=== PATIENT | female | born 1960 | race Caucasian/White ===

== ENCOUNTER 2021-01-12 15:15 | Emergency (ER) | payer MEDICARE ==
[~2021-01-12] VITALS: Ht 165.1 cm; Wt 95.5 kg
[2021-01-12] MEDS ORDERED: LORazepam 2 MG/ML VIAL IM ONE (15:45)
[2021-01-12 15:53] LABS: HEMATOCRIT 41.4 % (36.0-47.0); HEMOGLOBIN 13.7 g/dl (12.0-15.5); MEAN CORPUSCULAR HEMOGLOBIN 30.4 pg (27.0-33.0); MEAN CORPUSCULAR HGB CONC 33.1 g/dl (32.0-36.5); MEAN CORPUSCULAR VOLUME 91.8 fl (80.0-96.0); PLATELET COUNT, AUTOMATED 299 10^3/uL (150-450); RED BLOOD COUNT 4.51 10^6/uL (4.00-5.40); WHITE BLOOD COUNT 9.4 10^3/uL (4.0-10.0)
[2021-01-12 16:31] LABS: ACETAMINOPHEN LEVEL < 2.0 UG/ML (10.0-30.0); ALBUMIN 3.4 GM/DL (3.2-5.2); ALT/SGPT 12 U/L (12-78); BILIRUBIN,DIRECT 0.1 MG/DL (0.0-0.2); BILIRUBIN,TOTAL 0.4 MG/DL (0.2-1.0); BLOOD UREA NITROGEN 14 MG/DL (7-18); CALCIUM LEVEL 9.5 MG/DL (8.8-10.2); CARBON DIOXIDE LEVEL 23 MEQ/L (21-32); CHLORIDE LEVEL 109 MEQ/L (98-107); CREATININE FOR GFR 0.66 MG/DL (0.55-1.30); ETHYL ALCOHOL (ETHANOL) < 0.003 % (0.000-0.010); GLOMERULAR FILTRATION RATE > 60.0 (>45); GLUCOSE, FASTING 142 MG/DL (70-100); POTASSIUM SERUM 3.9 MEQ/L (3.5-5.1); SALICYLATE LEVEL 2.5 MG/DL (5.0-30.0); SODIUM LEVEL 140 MEQ/L (136-145)
[2021-01-13] MEDS ORDERED: UNRESOLVED CLARIFICATION ENTRY XX SCH (00:01)
[2021-01-13 01:01] LABS: AMPHETAMINES LEVEL URINE NEGATIVE (NEGATIVE); BARBITURATES URINE NEGATIVE (NEGATIVE); BENZODIAZEPINES URINE NEGATIVE (NEGATIVE); CANNABINOIDS URINE NEGATIVE (NEGATIVE); COCAINE METABOLITE URINE NEGATIVE (NEGATIVE); METHADONE URINE NEGATIVE (NEGATIVE); OPIATES URINE NEGATIVE (NEGATIVE); PHENCYCLIDINE URINE NEGATIVE (NEGATIVE)
[2021-01-13] MEDS ORDERED: NOXI1TAB PO (01:26)
[2021-01-13] MEDS ORDERED: MM S100C PO (01:26)
[2021-01-13] MEDS ORDERED: DEPA1TAB3 PO (01:26)
[2021-01-13] MEDS ORDERED: OLANZapine ORAL DISINTEGRATING TAB 5MG PO ONE ×2 (02:45→11:35)
[2021-01-13] MEDS ORDERED: LORazepam 1 MG TAB PO ONE (08:45)
[2021-01-13] MEDS: DIVALPROEX 500 MG TAB PO SCH (09:13)
[2021-01-13] MEDS ORDERED: LORazepam 2 MG/ML VIAL IM ONE ×2 (12:20→13:40)
[2021-01-13] MEDS ORDERED: OLANZapine INTRAMUSCULAR 10MG VIAL IM ONE (13:40)
[2021-01-13] MEDS ORDERED: LORazepam 2 MG/ML VIAL IM STA (14:31)
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
[2021-01-14] MEDS ORDERED: OLANZapine INTRAMUSCULAR 10MG VIAL IM ONE (00:50)
[2021-01-14] MEDS: DIVALPROEX 500 MG TAB PO SCH (08:43)
[2021-01-14] MEDS ORDERED: ARIPiprazole MONOHYDRATE 400 MG INJ (ABILIFY) IM ONE (09:25)
[2021-01-14] MEDS ORDERED: COGE1INJ IM (13:29)
[2021-01-14] MEDS ORDERED: ERGO500029 PO (13:29)
[2021-01-14] MEDS ORDERED: ABIL1INJ2 IM (13:29)
[2021-01-14] MEDS ORDERED: INVE234I IM (13:30)
[2021-01-14] MEDS ORDERED: HOME MED LIST COMPLETE! XX SCH (13:45)
[2021-01-14] MEDS ORDERED: PALIPERIDONE PALMITATE 234MG/1.5ML INJ (INVEGA)(FREE PSY INPT ONLY) IM ONE (15:00)
[2021-01-14] MEDS ORDERED: haloperidoL 5 MG TAB PO ONE (16:25)
[2021-01-14] MEDS ORDERED: LORazepam 2 MG TAB PO ONE (16:25)
[2021-01-14] MEDS ORDERED: diphenhydrAMINE 50MG/ML VIAL (J1200) IM ONE (17:00)
[2021-01-14] MEDS ORDERED: LORazepam 2 MG/ML VIAL IM ONE (17:00)
[2021-01-14] MEDS ORDERED: HALOPERIDOL 5MG/ML VIAL (J1630 PER 1) IM ONE (17:00)
[2021-01-14 22:08] LABS: RSV AMPLIFICATION NEGATIVE (NEGATIVE)
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
[2021-01-15] MEDS ORDERED: LORazepam 2 MG TAB PO ONE ×2 (08:40→15:10)
[2021-01-15] MEDS ORDERED: DIVALPROEX 500 MG TAB PO SCH (09:00)
[2021-01-15] MEDS ORDERED: LORazepam 2 MG/ML VIAL IM ONE (09:40)
[2021-01-15] MEDS ORDERED: HALOPERIDOL 5MG/ML VIAL (J1630 PER 1) IM ONE (09:40)
[2021-01-15] MEDS ORDERED: HALOPERIDOL 5MG/ML VIAL (J1630 PER 1) As Ordered ONE (09:43)
[2021-01-15 16:36] VITALS: BP 147/65
--- NOTE | 2021-01-16 00:06 | ECGEPIP ---
[facility] - ED Test Date: 2021-01-14 Pat Name: LISETTE REYNOLDS Department: Room: - Gender: Female Employment Counselor: jose : 1960 Requested By: LG Arriaga Order Number: [id number] Reading MD: Balta Seaman Measurements Intervals [place] Rate: 78 P: 37 KS: 144 QRS: -7 QRSD: 132 T: 34 QT: 406 QTc: 462 Interpretive Statements Normal sinus rhythm Right bundle branch block NO PRIORS FOR COMPARISON Electronically Signed on 01-16-2021 0:06:25 EDT by Balta Seaman
== END 2021-01-15 16:38 ==
LOC: M ED 15:15
DX: F31.9 Bipolar disorder, unspecified (principal); F25.9 Schizoaffective disorder, unspecified; Z79.899 Other long term (current) drug therapy
CPT/HCPCS: 80048; 80076; 80143; 80164; 80307; 82077; 84443; 85027; 87631; 93005; 96372; 99222; 99285; J1200; J1630; J2060

== ENCOUNTER 2021-01-28 11:06 | Emergency (ER) | payer MEDICARE ==
[~2021-01-28 11:06] MED LIST: ABIL1INJ2 IM; COGE1INJ IM; DEPA1TAB3 PO; ERGO500029 PO; INVE234I IM; MM S100C PO; NOXI1TAB PO
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
[2021-01-28 14:57] LABS: HEMATOCRIT 35.5 % (36.0-47.0); HEMOGLOBIN 11.7 g/dl (12.0-15.5); MEAN CORPUSCULAR HEMOGLOBIN 30.9 pg (27.0-33.0); MEAN CORPUSCULAR VOLUME 93.7 fl (80.0-96.0); PLATELET COUNT, AUTOMATED 220 10^3/uL (150-450); RED BLOOD COUNT 3.79 10^6/uL (4.00-5.40); WHITE BLOOD COUNT 8.7 10^3/uL (4.0-10.0)
[2021-01-28 15:57] LABS: RSV AMPLIFICATION NEGATIVE (NEGATIVE)
--- NOTE | 2021-01-28 17:51 | ECGEPIP ---
[facility] - ED Test Date: 2021-01-28 Pat Name: LISETTE REYNOLDS Department: Room: - Gender: Female Account Developer: ED : 1960 Requested By: YULI Dutta Order Number: [id number] Reading MD: Susie Zamora Measurements Intervals [place] Rate: 87 P: 68 FL: 150 QRS: -11 QRSD: 140 T: 52 QT: 398 QTc: 478 Interpretive Statements Normal sinus rhythm Right bundle branch block prolonged qtc increased rate 01/14/21 Electronically Signed on 01-28-2021 17:51:09 EDT by Susie Zamora
[2021-01-28 19:04] LABS: AMPHETAMINES LEVEL URINE NEGATIVE (NEGATIVE); BARBITURATES URINE NEGATIVE (NEGATIVE); BENZODIAZEPINES URINE NEGATIVE (NEGATIVE); CANNABINOIDS URINE NEGATIVE (NEGATIVE); COCAINE METABOLITE URINE NEGATIVE (NEGATIVE); METHADONE URINE NEGATIVE (NEGATIVE); OPIATES URINE NEGATIVE (NEGATIVE); PHENCYCLIDINE URINE NEGATIVE (NEGATIVE)
[2021-01-28] MEDS ORDERED: LORazepam 2 MG/ML VIAL IM ONE (21:55)
[2021-01-28] MEDS ORDERED: HALOPERIDOL 5MG/ML VIAL (J1630 PER 1) IM ONE (21:55)
[2021-01-28 23:06] LABS: ACETAMINOPHEN LEVEL < 2.0 UG/ML (10.0-30.0); ALBUMIN 2.7 GM/DL (3.2-5.2); ALT/SGPT 13 U/L (12-78); BILIRUBIN,DIRECT < 0.1 MG/DL (0.0-0.2); BILIRUBIN,TOTAL 0.2 MG/DL (0.2-1.0); BLOOD UREA NITROGEN 9 MG/DL (7-18); CALCIUM LEVEL 9.3 MG/DL (8.8-10.2); CARBON DIOXIDE LEVEL 29 MEQ/L (21-32); CHLORIDE LEVEL 111 MEQ/L (98-107); CREATININE FOR GFR 0.58 MG/DL (0.55-1.30); ETHYL ALCOHOL (ETHANOL) < 0.003 % (0.000-0.010); GLOMERULAR FILTRATION RATE > 60.0 (>45); GLUCOSE, FASTING 103 MG/DL (70-100); POTASSIUM SERUM 3.3 MEQ/L (3.5-5.1); SALICYLATE LEVEL 2.3 MG/DL (5.0-30.0); SODIUM LEVEL 144 MEQ/L (136-145); VALPROIC ACID (DEPAKOTE) 57.1 UG/ML (50.0-100.0)
[2021-01-28] MEDS ORDERED: POTASSIUM CHLORIDE 10MEQ SR TABLET PO ONE (23:25)
[2021-01-28] MEDS ORDERED: DIVALPROEX 500 MG TAB PO ONE (23:30)
[2021-01-29] MEDS ORDERED: DIVALPROEX 500 MG TAB PO SCH (09:00)
[2021-01-29] MEDS ORDERED: PROAAER10 INH (09:27)
[2021-01-29] MEDS ORDERED: NYST10CR TOP (09:27)
[2021-01-29] MEDS ORDERED: MIRA3350 PO (09:27)
[2021-01-29] MEDS ORDERED: HOME MED LIST COMPLETE! XX SCH (09:30)
[2021-01-29] MEDS ORDERED: POTASSIUM CHLORIDE 10MEQ SR TABLET PO ONE (14:00)
[2021-01-29] MEDS ORDERED: HALOPERIDOL 5MG/ML VIAL (J1630 PER 1) IM ONE (17:25)
[2021-01-29] MEDS ORDERED: LORazepam 2 MG/ML VIAL IM ONE (17:25)
[2021-01-29] MEDS ORDERED: HALOPERIDOL 5MG/ML VIAL (J1630 PER 1) As Ordered ONE (17:27)
[2021-01-29] MEDS ORDERED: LORazepam 2 MG/ML VIAL As Ordered ONE (17:28)
[2021-01-29 18:00] VITALS: BP 142/72
== END 2021-01-29 18:02 ==
LOC: M ED 11:06
DX: F25.9 Schizoaffective disorder, unspecified (principal); J45.909 Unspecified asthma, uncomplicated; I45.10 Unspecified right bundle-branch block; Z79.899 Other long term (current) drug therapy
CPT/HCPCS: 36415; 80048; 80076; 80143; 80164; 80307; 82077; 85027; 87631; 93005; 96372; 99285; J1630; J2060

== ENCOUNTER 2021-03-24 11:47 | Inpatient (IN) | payer MEDICARE, MEDICAID ==
[~2021-03-24] VITALS: Ht 166.4 cm; Wt 116.5 kg
[~2021-03-24 11:47] MED LIST changes: +MIRA3350 PO; +NYST10CR TOP; +PROAAER10 INH
[2021-03-24 18:10] LABS: HEMATOCRIT 39.7 % (36.0-47.0); HEMOGLOBIN 12.8 g/dl (12.0-15.5); MEAN CORPUSCULAR HEMOGLOBIN 29.7 pg (27.0-33.0); MEAN CORPUSCULAR HGB CONC 32.2 g/dl (32.0-36.5); MEAN CORPUSCULAR VOLUME 92.1 fl (80.0-96.0); PLATELET COUNT, AUTOMATED 281 10^3/uL (150-450); RED BLOOD COUNT 4.31 10^6/uL (4.00-5.40); WHITE BLOOD COUNT 8.6 10^3/uL (4.0-10.0)
[2021-03-24 18:46] LABS: ACETAMINOPHEN LEVEL < 2.0 UG/ML (10.0-30.0); ALBUMIN 3.3 GM/DL (3.2-5.2); ALT/SGPT 11 U/L (12-78); BILIRUBIN,DIRECT 0.1 MG/DL (0.0-0.2); BILIRUBIN,TOTAL 0.4 MG/DL (0.2-1.0); BLOOD UREA NITROGEN 16 MG/DL (7-18); CALCIUM LEVEL 9.6 MG/DL (8.8-10.2); CARBON DIOXIDE LEVEL 28 MEQ/L (21-32); CHLORIDE LEVEL 108 MEQ/L (98-107); CREATININE FOR GFR 0.69 MG/DL (0.55-1.30); ETHYL ALCOHOL (ETHANOL) < 0.003 % (0.000-0.010); GLOMERULAR FILTRATION RATE > 60.0 (>45); GLUCOSE, FASTING 87 MG/DL (70-100); POTASSIUM SERUM 4.2 MEQ/L (3.5-5.1); SODIUM LEVEL 142 MEQ/L (136-145)
[2021-03-25 07:12] LABS: AMPHETAMINES LEVEL URINE NEGATIVE (NEGATIVE); BARBITURATES URINE NEGATIVE (NEGATIVE); BENZODIAZEPINES URINE NEGATIVE (NEGATIVE); CANNABINOIDS URINE NEGATIVE (NEGATIVE); COCAINE METABOLITE URINE NEGATIVE (NEGATIVE); METHADONE URINE NEGATIVE (NEGATIVE); OPIATES URINE NEGATIVE (NEGATIVE); PHENCYCLIDINE URINE NEGATIVE (NEGATIVE)
[2021-03-25] MEDS: OLANZapine ORAL DISINTEGRATING TAB 5MG PO ONE ×2 (19:18→20:00)
[2021-03-26 16:10] LABS: RSV AMPLIFICATION NEGATIVE (NEGATIVE)
[2021-03-26] MEDS ORDERED: LORazepam 2 MG/ML VIAL IM STA (16:23)
[2021-03-26] MEDS ORDERED: OLANZapine INTRAMUSCULAR 10MG VIAL IM ONE (16:25)
[2021-03-28] MEDS ORDERED: HALOPERIDOL 5MG/ML VIAL (J1630 PER 1) IM ONE (09:20)
[2021-03-28] MEDS ORDERED: LORazepam 2 MG/ML VIAL IM ONE (09:20)
[2021-03-28] MEDS ORDERED: diphenhydrAMINE 50MG/ML VIAL (J1200) IM ONE (09:20)
[2021-03-29] MEDS: DIVALPROEX 500 MG TAB PO SCH ×2 (09:00→20:27)
[2021-03-29] MEDS ORDERED: HOME MED LIST COMPLETE! XX SCH (09:05)
[2021-03-29] MEDS ORDERED: OLANZapine ORAL DISINTEGRATING TAB 5MG PO ONE (09:30)
[2021-03-29] MEDS ORDERED: LORazepam 2 MG/ML VIAL IM ONE (10:20)
[2021-03-29] MEDS ORDERED: HALOPERIDOL 5MG/ML VIAL (J1630 PER 1) IM ONE (10:20)
[2021-03-29] MEDS ORDERED: diphenhydrAMINE 50MG/ML VIAL (J1200) IM ONE (10:20)
[2021-03-30 13:59] LABS: RSV AMPLIFICATION NEGATIVE (NEGATIVE)
[2021-03-30] MEDS ORDERED: MOM 30ML SUSPENSION UDC PO PRN (14:20)
[2021-03-30] MEDS ORDERED: MAALOX 30 ML SUSP *UDC PO PRN (14:20)
[2021-03-31] MEDS: DIVALPROEX 250MG *ER* TAB PO SCH ×3 (09:00→20:54)
[2021-03-31] MEDS ORDERED: BENZTROPINE 0.5 MG TAB PO PRN (14:05)
[2021-04-01] MEDS: DIVALPROEX 250MG *ER* TAB PO SCH ×2 (09:00→20:36)
[2021-04-02] MEDS: traZODone 50 MG TAB PO PRN (00:42)
[2021-04-02] MEDS: DIVALPROEX 250MG *ER* TAB PO SCH ×2 (09:00→21:00)
[2021-04-03] MEDS: DIVALPROEX 250MG *ER* TAB PO SCH ×2 (09:00→20:38)
[2021-04-03] MEDS ORDERED: LORazepam 2 MG/ML VIAL IM STA (09:15)
[2021-04-03] MEDS ORDERED: HALOPERIDOL 5MG/ML VIAL (J1630 PER 1) IM STA (09:15)
[2021-04-03] MEDS ORDERED: diphenhydrAMINE 50MG/ML VIAL (J1200) IM STA (09:15)
[2021-04-04] MEDS: DIVALPROEX 250MG *ER* TAB PO SCH (09:00)
[2021-04-05] MEDS: DIVALPROEX 250MG *ER* TAB PO SCH ×3 (04:32→21:00)
[2021-04-06] MEDS: DIVALPROEX 250MG *ER* TAB PO SCH ×2 (09:00→20:23)
[2021-04-06] MEDS: ACETAMINOPHEN TAB 650MG DOSE (2X325MG) PO PRN (16:23)
[2021-04-07] MEDS: DIVALPROEX 250MG *ER* TAB PO SCH ×2 (08:52→20:28)
[2021-04-07] MEDS: ACETAMINOPHEN TAB 650MG DOSE (2X325MG) PO PRN ×2 (08:52→14:56)
[2021-04-08] MEDS: ACETAMINOPHEN TAB 650MG DOSE (2X325MG) PO PRN ×2 (07:36→21:38)
[2021-04-08] MEDS: DIVALPROEX 250MG *ER* TAB PO SCH ×3 (09:00→20:06)
[2021-04-09] MEDS: DIVALPROEX 250MG *ER* TAB PO SCH ×2 (09:00→20:00)
[2021-04-09] MEDS: ACETAMINOPHEN TAB 650MG DOSE (2X325MG) PO PRN (15:10)
[2021-04-10] MEDS: DIVALPROEX 250MG *ER* TAB PO SCH ×2 (08:29→21:00)
[2021-04-10] MEDS: ACETAMINOPHEN TAB 650MG DOSE (2X325MG) PO PRN (16:54)
[2021-04-11] MEDS: DIVALPROEX 250MG *ER* TAB PO SCH ×2 (09:00→20:42)
[2021-04-11] MEDS: ACETAMINOPHEN TAB 650MG DOSE (2X325MG) PO PRN (16:23)
[2021-04-12] MEDS: DIVALPROEX 250MG *ER* TAB PO SCH ×2 (08:19→21:00)
[2021-04-12] MEDS: NYSTATIN 100,000 UNITS/GM TOPICAL PWD 15 GM TOP SCH ×2 (11:26→21:00)
[2021-04-13] MEDS: DIVALPROEX 250MG *ER* TAB PO SCH ×2 (09:00→21:00)
[2021-04-13] MEDS: NYSTATIN 100,000 UNITS/GM TOPICAL PWD 15 GM TOP SCH ×2 (09:52→21:00)
[2021-04-13] MEDS: ACETAMINOPHEN TAB 650MG DOSE (2X325MG) PO PRN (18:51)
[2021-04-14] MEDS: DIVALPROEX 250MG *ER* TAB PO SCH ×2 (09:00→20:19)
[2021-04-14] MEDS: NYSTATIN 100,000 UNITS/GM TOPICAL PWD 15 GM TOP SCH ×2 (09:52→21:00)
[2021-04-15] MEDS: DIVALPROEX 250MG *ER* TAB PO SCH ×2 (09:00→21:00)
[2021-04-15] MEDS: NYSTATIN 100,000 UNITS/GM TOPICAL PWD 15 GM TOP SCH ×2 (09:49→21:00)
[2021-04-15] MEDS: QUEtiapine FUMARATE 50MG TAB PO SCH (12:25)
[2021-04-15] MEDS: QUEtiapine FUMARATE 100 MG TAB PO SCH (21:00)
[2021-04-16] MEDS: DIVALPROEX 250MG *ER* TAB PO SCH ×2 (08:19→20:32)
[2021-04-16] MEDS: QUEtiapine FUMARATE 50MG TAB PO SCH (08:19)
[2021-04-16] MEDS: NYSTATIN 100,000 UNITS/GM TOPICAL PWD 15 GM TOP SCH ×2 (08:20→21:00)
[2021-04-16] MEDS ORDERED: diphenhydrAMINE 50MG/ML VIAL (J1200) IM STA (11:08)
[2021-04-16] MEDS ORDERED: LORazepam 2 MG/ML VIAL IM STA (11:08)
[2021-04-16] MEDS ORDERED: HALOPERIDOL 5MG/ML VIAL (J1630 PER 1) IM STA (11:08)
[2021-04-16] MEDS ORDERED: HALOPERIDOL 5MG/ML VIAL (J1630 PER 1) As Ordered ONE (11:17)
[2021-04-16] MEDS ORDERED: LORazepam 2 MG/ML VIAL As Ordered ONE (11:25)
[2021-04-16] MEDS: QUEtiapine FUMARATE 100 MG TAB PO SCH (20:33)
[2021-04-17] MEDS: DIVALPROEX 250MG *ER* TAB PO SCH ×2 (08:01→21:00)
[2021-04-17] MEDS: QUEtiapine FUMARATE 100 MG TAB PO SCH (08:01)
[2021-04-17] MEDS: NYSTATIN 100,000 UNITS/GM TOPICAL PWD 15 GM TOP SCH ×2 (08:02→21:00)
[2021-04-17] MEDS: diphenhydrAMINE 25MG CAP PO PRN (08:47)
[2021-04-17] MEDS: QUEtiapine FUMARATE 50MG TAB PO SCH (21:00)
[2021-04-18] MEDS: DIVALPROEX 500MG *ER* TAB PO SCH (09:00)
[2021-04-18] MEDS: NYSTATIN 100,000 UNITS/GM TOPICAL PWD 15 GM TOP SCH ×2 (09:00→20:23)
[2021-04-18] MEDS: ACETAMINOPHEN TAB 650MG DOSE (2X325MG) PO PRN (09:10)
[2021-04-18] MEDS: diphenhydrAMINE 25MG CAP PO PRN ×2 (09:10→20:38)
[2021-04-18] MEDS: QUEtiapine FUMARATE 100 MG TAB PO SCH (09:11)
[2021-04-18] MEDS: LIDOCAINE 5% (LIDODERM) PATCH TD SCH (14:50)
[2021-04-18] MEDS: DIVALPROEX 250MG *ER* TAB PO SCH (20:23)
[2021-04-18] MEDS: **NOTE PATIENT COMMENT** MISC XX SCH (20:23)
[2021-04-18] MEDS: QUEtiapine FUMARATE 50MG TAB PO SCH ×2 (20:23→20:38)
[2021-04-19] MEDS: DIVALPROEX 500MG *ER* TAB PO SCH (09:00)
[2021-04-19] MEDS: NYSTATIN 100,000 UNITS/GM TOPICAL PWD 15 GM TOP SCH ×2 (09:00→22:44)
[2021-04-19] MEDS: LIDOCAINE 5% (LIDODERM) PATCH TD SCH ×2 (09:00→22:45)
[2021-04-19] MEDS: diphenhydrAMINE 25MG CAP PO PRN (09:57)
[2021-04-19] MEDS: QUEtiapine FUMARATE 100 MG TAB PO SCH (09:57)
[2021-04-19] MEDS: DIVALPROEX 250MG *ER* TAB PO SCH (22:44)
[2021-04-19] MEDS: QUEtiapine FUMARATE 50MG TAB PO SCH (22:44)
[2021-04-19] MEDS: **NOTE PATIENT COMMENT** MISC XX SCH (22:46)
[2021-04-20] MEDS: NYSTATIN 100,000 UNITS/GM TOPICAL PWD 15 GM TOP SCH ×2 (09:00→21:00)
[2021-04-20] MEDS: LIDOCAINE 5% (LIDODERM) PATCH TD SCH (09:00)
[2021-04-20] MEDS: DIVALPROEX 500MG *ER* TAB PO SCH (09:00)
[2021-04-20] MEDS: QUEtiapine FUMARATE 100 MG TAB PO SCH (09:48)
[2021-04-20] MEDS: diphenhydrAMINE 25MG CAP PO PRN (09:48)
[2021-04-20] MEDS: **NOTE PATIENT COMMENT** MISC XX SCH (21:00)
[2021-04-20] MEDS: DIVALPROEX 250MG *ER* TAB PO SCH (21:00)
[2021-04-21 06:45] VITALS: BP 180/83
[2021-04-21] MEDS: diphenhydrAMINE 25MG CAP PO PRN ×2 (08:22→21:32)
[2021-04-21] MEDS: LIDOCAINE 5% (LIDODERM) PATCH TD SCH (08:25)
[2021-04-21] MEDS: DIVALPROEX 500MG *ER* TAB PO SCH (08:25)
[2021-04-21] MEDS: NYSTATIN 100,000 UNITS/GM TOPICAL PWD 15 GM TOP SCH ×2 (08:25→21:00)
[2021-04-21] MEDS: DIVALPROEX 250MG *ER* TAB PO SCH (21:00)
[2021-04-21] MEDS: **NOTE PATIENT COMMENT** MISC XX SCH (21:00)
[2021-04-21] MEDS: traZODone 50 MG TAB PO PRN (21:32)
[2021-04-22] MEDS: diphenhydrAMINE 25MG CAP PO PRN ×2 (08:09→19:27)
[2021-04-22] MEDS: NYSTATIN 100,000 UNITS/GM TOPICAL PWD 15 GM TOP SCH ×2 (09:00→19:28)
[2021-04-22] MEDS: LIDOCAINE 5% (LIDODERM) PATCH TD SCH (09:00)
[2021-04-22] MEDS: DIVALPROEX 500MG *ER* TAB PO SCH (09:00)
[2021-04-22] MEDS: traZODone 50 MG TAB PO PRN (19:27)
[2021-04-22] MEDS: DIVALPROEX 250MG *ER* TAB PO SCH (19:28)
[2021-04-22] MEDS: **NOTE PATIENT COMMENT** MISC XX SCH (19:28)
[2021-04-23] MEDS: DIVALPROEX 500MG *ER* TAB PO SCH (08:17)
[2021-04-23] MEDS: NYSTATIN 100,000 UNITS/GM TOPICAL PWD 15 GM TOP SCH ×2 (08:17→20:43)
[2021-04-23] MEDS: LIDOCAINE 5% (LIDODERM) PATCH TD SCH ×2 (08:17→10:57)
[2021-04-23] MEDS: OLANZapine 5 MG TAB PO PRN (13:49)
[2021-04-23] MEDS: ACETAMINOPHEN TAB 650MG DOSE (2X325MG) PO PRN (16:30)
[2021-04-23] MEDS: diphenhydrAMINE 25MG CAP PO PRN (20:42)
[2021-04-23] MEDS: DIVALPROEX 250MG *ER* TAB PO SCH (20:42)
[2021-04-23] MEDS: traZODone 50 MG TAB PO PRN (20:42)
[2021-04-23] MEDS: **NOTE PATIENT COMMENT** MISC XX SCH (20:49)
[2021-04-24] MEDS: OLANZapine 5 MG TAB PO PRN ×2 (06:14→13:14)
[2021-04-24] MEDS: DIVALPROEX 500MG *ER* TAB PO SCH (08:15)
[2021-04-24] MEDS: LIDOCAINE 5% (LIDODERM) PATCH TD SCH (08:15)
[2021-04-24] MEDS: NYSTATIN 100,000 UNITS/GM TOPICAL PWD 15 GM TOP SCH ×2 (08:15→20:58)
[2021-04-24] MEDS: diphenhydrAMINE 25MG CAP PO PRN (08:31)
[2021-04-24] MEDS: DIVALPROEX 250MG *ER* TAB PO SCH (20:58)
[2021-04-24] MEDS: **NOTE PATIENT COMMENT** MISC XX SCH (20:58)
[2021-04-25] MEDS: diphenhydrAMINE 25MG CAP PO PRN (08:10)
[2021-04-25] MEDS: LIDOCAINE 5% (LIDODERM) PATCH TD SCH (08:11)
[2021-04-25] MEDS: DIVALPROEX 500MG *ER* TAB PO SCH (08:11)
[2021-04-25] MEDS: NYSTATIN 100,000 UNITS/GM TOPICAL PWD 15 GM TOP SCH ×2 (08:11→20:57)
[2021-04-25] MEDS: OLANZapine 5 MG TAB PO PRN (09:20)
[2021-04-25] MEDS: **NOTE PATIENT COMMENT** MISC XX SCH (20:57)
[2021-04-25] MEDS: DIVALPROEX 250MG *ER* TAB PO SCH (20:57)
[2021-04-26] MEDS: diphenhydrAMINE 25MG CAP PO PRN ×2 (08:22→20:37)
[2021-04-26] MEDS: DIVALPROEX 500MG *ER* TAB PO SCH (09:00)
[2021-04-26] MEDS: LIDOCAINE 5% (LIDODERM) PATCH TD SCH (09:00)
[2021-04-26] MEDS: NYSTATIN 100,000 UNITS/GM TOPICAL PWD 15 GM TOP SCH ×2 (09:00→20:34)
[2021-04-26] MEDS: OLANZapine 5 MG TAB PO PRN (10:58)
[2021-04-26] MEDS ORDERED: OLANZapine 10 MG TAB PO ONE (13:30)
[2021-04-26] MEDS ORDERED: diphenhydrAMINE 50MG CAP PO ONE (13:30)
[2021-04-26] MEDS: **NOTE PATIENT COMMENT** MISC XX SCH (20:34)
[2021-04-26] MEDS: DIVALPROEX 250MG *ER* TAB PO SCH (20:34)
[2021-04-26] MEDS: traZODone 50 MG TAB PO PRN (20:37)
[2021-04-27] MEDS: OLANZapine 5 MG TAB PO PRN ×2 (04:49→23:24)
[2021-04-27] MEDS: DIVALPROEX 500MG *ER* TAB PO SCH (08:27)
[2021-04-27] MEDS: LIDOCAINE 5% (LIDODERM) PATCH TD SCH (08:31)
[2021-04-27] MEDS: NYSTATIN 100,000 UNITS/GM TOPICAL PWD 15 GM TOP SCH ×2 (08:32→21:00)
[2021-04-27] MEDS: ACETAMINOPHEN TAB 650MG DOSE (2X325MG) PO PRN (14:24)
[2021-04-27] MEDS: **NOTE PATIENT COMMENT** MISC XX SCH (20:44)
[2021-04-27] MEDS: DIVALPROEX 250MG *ER* TAB PO SCH (21:00)
[2021-04-27] MEDS: diphenhydrAMINE 25MG CAP PO PRN (21:07)
[2021-04-27] MEDS: traZODone 50 MG TAB PO PRN (21:07)
[2021-04-28] MEDS: LIDOCAINE 5% (LIDODERM) PATCH TD SCH (08:38)
[2021-04-28] MEDS: DIVALPROEX 500MG *ER* TAB PO SCH (08:38)
[2021-04-28] MEDS: NYSTATIN 100,000 UNITS/GM TOPICAL PWD 15 GM TOP SCH ×2 (08:41→20:40)
[2021-04-28] MEDS: OLANZapine 5 MG TAB PO PRN (13:46)
[2021-04-28] MEDS: traZODone 50 MG TAB PO PRN (20:39)
[2021-04-28] MEDS: DIVALPROEX 250MG *ER* TAB PO SCH (20:40)
[2021-04-28] MEDS: **NOTE PATIENT COMMENT** MISC XX SCH (21:00)
[2021-04-29] MEDS: DIVALPROEX 500MG *ER* TAB PO SCH (08:12)
[2021-04-29] MEDS: NYSTATIN 100,000 UNITS/GM TOPICAL PWD 15 GM TOP SCH ×2 (08:12→19:50)
[2021-04-29] MEDS: LIDOCAINE 5% (LIDODERM) PATCH TD SCH (08:12)
[2021-04-29] MEDS: traZODone 50 MG TAB PO PRN (19:47)
[2021-04-29] MEDS: ACETAMINOPHEN TAB 650MG DOSE (2X325MG) PO PRN (19:48)
[2021-04-29] MEDS: **NOTE PATIENT COMMENT** MISC XX SCH (19:50)
[2021-04-29] MEDS: DIVALPROEX 250MG *ER* TAB PO SCH (19:50)
[2021-04-30] MEDS: DIVALPROEX 500MG *ER* TAB PO SCH (08:16)
[2021-04-30] MEDS: LIDOCAINE 5% (LIDODERM) PATCH TD SCH (09:00)
[2021-04-30] MEDS: NYSTATIN 100,000 UNITS/GM TOPICAL PWD 15 GM TOP SCH (09:00)
[2021-04-30] MEDS ORDERED: BENZ0.5T23 PO (09:22)
[2021-04-30] MEDS ORDERED: TRAZ-252 PO (09:22)
[2021-04-30] MEDS ORDERED: NYST10006 TOP (09:22)
[2021-04-30] MEDS ORDERED: HALO10TA20 PO ×2 (09:22)
[2021-04-30] MEDS ORDERED: OLAN1TAB16 PO (09:22)
== END 2021-04-30 10:40 | disposition home or self-care (01) | DRG 885 ==
LOC: M ED 11:47 → UNDOADMIN 12:00 → M ED INP 12:00 → M ED 19:34 → M ED INP 03-30 14:26 → M PSY 03-30 16:20
PROVIDERS: ADMIT Student in an Organized Health Care Education/Training Program; ATTEND Psychiatry & Neurology Psychiatry
DX: F25.0 Schizoaffective disorder, bipolar type (principal); Z91.14 Patient's other noncompliance with medication regimen; Z91.19 Patient's noncompliance with other medical treatment and regimen; Z88.8 Allergy status to other drugs, medicaments and biological substances; Z78.1 Physical restraint status; Z79.899 Other long term (current) drug therapy

== ENCOUNTER 2021-07-28 15:07 | Emergency (ER) | payer MEDICARE, MEDICAID ==
[~2021-07-28] VITALS: Ht 165.1 cm; Wt 121.4 kg
[2021-07-28 15:07] VITALS: BP 160/72
[~2021-07-28 15:07] MED LIST changes: +BENZ0.5T23 PO; +HALO10TA20 PO; +NYST10006 TOP; +OLAN1TAB16 PO; +TRAZ-252 PO
[2021-07-28] MEDS ORDERED: INVE156I (15:20)
[2021-07-28] MEDS ORDERED: RISP-11 (15:20)
[2021-07-28] MEDS ORDERED: LIDOCAINE 5% (LIDODERM) PATCH TD ONE (18:30)
[2021-07-28] MEDS ORDERED: methocarbamoL 750 MG TAB PO ONE (18:30)
[2021-07-28] MEDS ORDERED: KETOROLAC 60MG 2ML VIAL IM ONE (18:30)
[2021-07-28] MEDS ORDERED: NAPR-837 PO (20:27)
[2021-07-28] MEDS ORDERED: METH-1165 PO (20:27)
[2021-07-29] MEDS ORDERED: **NOTE PATIENT COMMENT** MISC XX ONE (06:00)
== END 2021-07-28 20:43 | disposition home or self-care (01) ==
LOC: M ED 15:07
DX: M54.50 Low back pain, unspecified (principal); E11.9 Type 2 diabetes mellitus without complications; F17.200 Nicotine dependence, unspecified, uncomplicated; Z79.4 Long term (current) use of insulin; Z79.899 Other long term (current) drug therapy; Z88.8 Allergy status to other drugs, medicaments and biological substances
CPT/HCPCS: 72131; 81001; 87086; 96372; 99282; J1885

== ENCOUNTER → 2021-08-19 | Outpatient (REF) | payer MEDICARE, MEDICAID ==
[~2021-08-19] MED LIST changes: +INVE156I; +METH-1165 PO; +NAPR-837 PO; +RISP-11
[2021-08-19 17:33] LABS: APPEARANCE, URINE CLEAR (CLEAR); BACTERIA, URINE AUTO NEGATIVE (NEGATIVE); BILIRUBIN, URINE AUTO NEGATIVE (NEGATIVE); BLOOD, URINE BLOOD 2+ (NEGATIVE); COLOR, URINE STRAW (YELLOW); GLUCOSE, URINE (UA) AUTO NEGATIVE (NEGATIVE); KETONE, URINE AUTO NEGATIVE (NEGATIVE); LEUKOCYTE ESTERASE, URINE AUTO NEGATIVE (NEGATIVE); NITRITE, URINE AUTO NEGATIVE (NEGATIVE); PROTEIN, URINE AUTO NEGATIVE (NEGATIVE); RBC, URINE AUTO 0 /HPF (0-3); SPECIFIC GRAVITY URINE AUTO 1.002 (1.002-1.035); SQUAMOUS EPITHELIAL CELL UR AU 0 /HPF (0-6); UROBILINOGEN, URINE AUTO 0.2 mg/dL (0.0-2.0); WBC, URINE AUTO 0 /HPF (0-3)
== END ==
LOC: M LAB REF 16:20
PROVIDERS: ATTEND Obstetrics & Gynecology
DX: R35.1 Nocturia (principal); N39.41 Urge incontinence

== ENCOUNTER → 2021-08-25 | Outpatient (CLI) | payer MEDICARE, MEDICAID | LOC: M WHC 14:04 | PROVIDERS: ATTEND Obstetrics & Gynecology | DX: D25.9 Leiomyoma of uterus, unspecified (principal); D39.0 Neoplasm of uncertain behavior of uterus ==

== ENCOUNTER 2021-11-11 07:29 | Inpatient (IN) | payer MEDICARE, MEDICAID ==
[~2021-11-11] VITALS: Ht 165.1 cm; Wt 147.7 kg
[~2021-11-11 07:29] MED LIST changes: +NYST-13 TOP; -NYST10CR TOP; -RISP-11; +RISP-11 PO
[2021-11-11] MEDS ORDERED: ZOLO100T PO (07:45)
[2021-11-11] MEDS ORDERED: INVE234I IM (07:45)
[2021-11-11] MEDS ORDERED: AMIT50TA PO (07:45)
[2021-11-11 08:47] LABS: HEMATOCRIT 43.8 % (36.0-47.0); HEMOGLOBIN 14.4 g/dl (12.0-15.5); MEAN CORPUSCULAR HEMOGLOBIN 28.9 pg (27.0-33.0); MEAN CORPUSCULAR HGB CONC 32.9 g/dl (32.0-36.5); MEAN CORPUSCULAR VOLUME 87.8 fl (80.0-96.0); PLATELET COUNT, AUTOMATED 349 10^3/uL (150-450); RED BLOOD COUNT 4.99 10^6/uL (4.00-5.40)
[2021-11-11 09:18] LABS: ACETAMINOPHEN LEVEL < 2.0 UG/ML (10.0-30.0); ALBUMIN 4.2 GM/DL (3.2-5.2); ALT/SGPT 21 U/L (12-78); BILIRUBIN,DIRECT 0.2 MG/DL (0.0-0.2); BILIRUBIN,TOTAL 0.3 MG/DL (0.2-1.0); BLOOD UREA NITROGEN 10 MG/DL (7-18); CALCIUM LEVEL 10.1 MG/DL (8.8-10.2); CARBON DIOXIDE LEVEL 24 MEQ/L (21-32); CHLORIDE LEVEL 109 MEQ/L (98-107); CREATININE FOR GFR 0.81 MG/DL (0.55-1.30); ETHYL ALCOHOL (ETHANOL) < 0.003 % (0.000-0.010); GLOMERULAR FILTRATION RATE > 60.0 (>45); GLUCOSE, FASTING 128 MG/DL (70-100); SALICYLATE LEVEL 4.7 MG/DL (5.0-30.0); SODIUM LEVEL 139 MEQ/L (136-145); TOTAL PROTEIN 7.7 GM/DL (6.4-8.2)
[2021-11-11 09:23] LABS: RSV AMPLIFICATION NEGATIVE (NEGATIVE)
[2021-11-11] MEDS ORDERED: BENZ0.5T23 PO (11:55)
[2021-11-11] MEDS ORDERED: NYST1POW9 TOP (11:55)
[2021-11-11] MEDS ORDERED: HOME MED LIST COMPLETE! XX SCH (11:55)
[2021-11-11] MEDS: NICOTINE 21MG/24HR 1 EA TRANSDERMAL TD ONE ×2 (14:00→15:56)
[2021-11-11] MEDS: SERTRALINE 100 MG TAB PO SCH (18:00)
[2021-11-11] MEDS ORDERED: AMITRIPTYLINE 50 MG TAB PO SCH (21:00)
[2021-11-11] MEDS: BENZTROPINE 0.5 MG TAB PO SCH (21:00)
[2021-11-11] MEDS ORDERED: risperiDONE 2 MG TAB PO SCH (21:00)
[2021-11-12] MEDS: BENZTROPINE 0.5 MG TAB PO SCH ×4 (00:41→21:00)
[2021-11-12] MEDS: SERTRALINE 100 MG TAB PO SCH ×2 (00:42→08:31)
[2021-11-12] MEDS ORDERED: BENZTROPINE 0.5 MG TAB PO ONE (07:35)
[2021-11-12] MEDS ORDERED: SERTRALINE 100 MG TAB PO ONE (07:35)
[2021-11-12] MEDS ORDERED: MOM 30ML SUSPENSION UDC PO PRN (10:30)
[2021-11-12] MEDS ORDERED: ACETAMINOPHEN TAB 650MG DOSE (2X325MG) PO PRN (10:30)
[2021-11-12] MEDS ORDERED: traZODone 50 MG TAB PO PRN (10:30)
[2021-11-12] MEDS ORDERED: MAALOX 30 ML SUSP *UDC PO PRN (10:30)
[2021-11-12] MEDS ORDERED: NYSTATIN 100,000 UNITS/GM TOPICAL PWD 15 GM TOP PRN (10:30)
[2021-11-12] MEDS ORDERED: LORazepam 1 MG TAB PO PRN (10:30)
[2021-11-12] MEDS: NICOTINE 21MG/24HR 1 EA TRANSDERMAL TD SCH (14:01)
[2021-11-12] MEDS: AMITRIPTYLINE 50 MG TAB PO SCH (21:00)
[2021-11-12] MEDS ORDERED: risperiDONE 2 MG TAB PO SCH (21:00)
[2021-11-13 06:23] VITALS: BP 164/78
[2021-11-13] MEDS ORDERED: PALIPERIDONE PALMITATE 234MG/1.5ML INJ (INVEGA)(FREE PSY INPT ONLY) IM ONE (09:00)
[2021-11-13] MEDS: SERTRALINE 100 MG TAB PO SCH (09:58)
[2021-11-13] MEDS: BENZTROPINE 0.5 MG TAB PO SCH ×2 (09:58→22:08)
[2021-11-13] MEDS: NICOTINE 21MG/24HR 1 EA TRANSDERMAL TD SCH (09:58)
[2021-11-13 18:46] VITALS: BP 141/65
[2021-11-13] MEDS: risperiDONE 2 MG TAB PO SCH (22:07)
[2021-11-13] MEDS: AMITRIPTYLINE 50 MG TAB PO SCH (22:08)
[2021-11-14 07:04] VITALS: BP 137/81
[2021-11-14] MEDS: SERTRALINE 100 MG TAB PO SCH (10:00)
[2021-11-14] MEDS: BENZTROPINE 0.5 MG TAB PO SCH ×2 (10:00→21:34)
[2021-11-14] MEDS: NICOTINE 21MG/24HR 1 EA TRANSDERMAL TD SCH (10:00)
[2021-11-14 17:49] VITALS: BP 150/81
[2021-11-14] MEDS: AMITRIPTYLINE 50 MG TAB PO SCH (21:34)
[2021-11-14] MEDS: risperiDONE 2 MG TAB PO SCH (21:35)
[2021-11-15] MEDS: NICOTINE 21MG/24HR 1 EA TRANSDERMAL TD SCH ×2 (09:00→10:26)
[2021-11-15] MEDS: BENZTROPINE 0.5 MG TAB PO SCH ×2 (10:26→20:36)
[2021-11-15] MEDS: SERTRALINE 100 MG TAB PO SCH (10:26)
[2021-11-15] MEDS: risperiDONE 2 MG TAB PO SCH (20:36)
[2021-11-15] MEDS: AMITRIPTYLINE 50 MG TAB PO SCH (20:36)
[2021-11-16 06:41] VITALS: BP 161/93
[2021-11-16] MEDS: BENZTROPINE 0.5 MG TAB PO SCH ×2 (08:28→20:25)
[2021-11-16] MEDS: SERTRALINE 100 MG TAB PO SCH (08:28)
[2021-11-16] MEDS: NICOTINE 21MG/24HR 1 EA TRANSDERMAL TD SCH (09:00)
[2021-11-16] MEDS: AMITRIPTYLINE 50 MG TAB PO SCH (20:25)
[2021-11-16] MEDS: risperiDONE 2 MG TAB PO SCH (20:25)
[2021-11-17 06:16] VITALS: BP 162/77
[2021-11-17] MEDS: BENZTROPINE 0.5 MG TAB PO SCH ×2 (08:43→21:20)
[2021-11-17] MEDS: SERTRALINE 100 MG TAB PO SCH (08:43)
[2021-11-17] MEDS: NICOTINE 21MG/24HR 1 EA TRANSDERMAL TD SCH ×2 (08:44→12:56)
[2021-11-17] MEDS: AMITRIPTYLINE 50 MG TAB PO SCH (21:20)
[2021-11-17] MEDS: risperiDONE 2 MG TAB PO SCH (21:20)
[2021-11-18] MEDS: NICOTINE 21MG/24HR 1 EA TRANSDERMAL TD SCH (09:14)
[2021-11-18] MEDS: SERTRALINE 100 MG TAB PO SCH (09:14)
[2021-11-18] MEDS: BENZTROPINE 0.5 MG TAB PO SCH ×2 (09:14→22:06)
[2021-11-18 18:25] VITALS: BP 142/78
[2021-11-18] MEDS: risperiDONE 2 MG TAB PO SCH (22:06)
[2021-11-18] MEDS: AMITRIPTYLINE 50 MG TAB PO SCH (22:06)
[2021-11-18] MEDS: DIVALPROEX 250MG *ER* TAB PO SCH (22:06)
[2021-11-19] MEDS: SERTRALINE 100 MG TAB PO SCH (09:37)
[2021-11-19] MEDS: BENZTROPINE 0.5 MG TAB PO SCH ×2 (09:37→20:06)
[2021-11-19] MEDS: NICOTINE 21MG/24HR 1 EA TRANSDERMAL TD SCH (09:37)
[2021-11-19] MEDS: DIVALPROEX 250MG *ER* TAB PO SCH ×2 (09:37→20:06)
[2021-11-19 18:30] VITALS: BP 139/70
[2021-11-19] MEDS: AMITRIPTYLINE 50 MG TAB PO SCH (20:04)
[2021-11-19] MEDS: risperiDONE 2 MG TAB PO SCH (20:05)
[2021-11-20] MEDS: BENZTROPINE 0.5 MG TAB PO SCH ×2 (08:57→21:01)
[2021-11-20] MEDS: SERTRALINE 100 MG TAB PO SCH (08:57)
[2021-11-20] MEDS: DIVALPROEX 250MG *ER* TAB PO SCH ×2 (08:57→21:01)
[2021-11-20] MEDS: NICOTINE 21MG/24HR 1 EA TRANSDERMAL TD SCH (08:58)
[2021-11-20] MEDS: AMITRIPTYLINE 50 MG TAB PO SCH (21:01)
[2021-11-20] MEDS: risperiDONE 2 MG TAB PO SCH (21:01)
[2021-11-21 06:53] VITALS: BP 180/93
[2021-11-21] MEDS: NICOTINE 21MG/24HR 1 EA TRANSDERMAL TD SCH (09:00)
[2021-11-21] MEDS: DIVALPROEX 250MG *ER* TAB PO SCH ×2 (09:20→21:56)
[2021-11-21] MEDS: BENZTROPINE 0.5 MG TAB PO SCH ×2 (09:21→21:56)
[2021-11-21] MEDS: SERTRALINE 100 MG TAB PO SCH (09:21)
[2021-11-21] MEDS: risperiDONE 2 MG TAB PO SCH (21:56)
[2021-11-21] MEDS: AMITRIPTYLINE 50 MG TAB PO SCH (21:56)
[2021-11-22 06:27] VITALS: BP 170/77
[2021-11-22] MEDS: NICOTINE 21MG/24HR 1 EA TRANSDERMAL TD SCH (10:13)
[2021-11-22] MEDS: SERTRALINE 100 MG TAB PO SCH (10:13)
[2021-11-22] MEDS: BENZTROPINE 0.5 MG TAB PO SCH ×2 (10:13→21:00)
[2021-11-22] MEDS: DIVALPROEX 250MG *ER* TAB PO SCH ×2 (10:14→21:00)
[2021-11-22] MEDS: AMITRIPTYLINE 50 MG TAB PO SCH (21:00)
[2021-11-22] MEDS: risperiDONE 2 MG TAB PO SCH (21:00)
[2021-11-23] MEDS: SERTRALINE 100 MG TAB PO SCH (08:17)
[2021-11-23] MEDS: BENZTROPINE 0.5 MG TAB PO SCH ×2 (08:17→21:29)
[2021-11-23] MEDS: DIVALPROEX 250MG *ER* TAB PO SCH ×2 (08:17→21:30)
[2021-11-23] MEDS: NICOTINE 21MG/24HR 1 EA TRANSDERMAL TD SCH (08:18)
[2021-11-23] MEDS: AMITRIPTYLINE 50 MG TAB PO SCH (21:29)
[2021-11-23] MEDS: risperiDONE 2 MG TAB PO SCH (21:29)
[2021-11-24 06:19] VITALS: BP 163/73
[2021-11-24] MEDS: BENZTROPINE 0.5 MG TAB PO SCH ×2 (08:35→21:44)
[2021-11-24] MEDS: SERTRALINE 100 MG TAB PO SCH (08:35)
[2021-11-24] MEDS: DIVALPROEX 250MG *ER* TAB PO SCH (08:35)
[2021-11-24] MEDS: NICOTINE 21MG/24HR 1 EA TRANSDERMAL TD SCH (08:36)
[2021-11-24] MEDS: AMITRIPTYLINE 50 MG TAB PO SCH (21:43)
[2021-11-24] MEDS: DIVALPROEX 500MG *ER* TAB PO SCH (21:44)
[2021-11-24] MEDS: risperiDONE 2 MG TAB PO SCH (21:44)
[2021-11-25] MEDS: SERTRALINE 100 MG TAB PO SCH (11:22)
[2021-11-25] MEDS: BENZTROPINE 0.5 MG TAB PO SCH ×2 (11:22→20:05)
[2021-11-25] MEDS: DIVALPROEX 500MG *ER* TAB PO SCH (11:22)
[2021-11-25] MEDS: NICOTINE 21MG/24HR 1 EA TRANSDERMAL TD SCH (11:23)
[2021-11-25] MEDS: DIVALPROEX 250MG *ER* TAB PO SCH (11:24)
[2021-11-25] MEDS: risperiDONE 2 MG TAB PO SCH (20:05)
[2021-11-25] MEDS: AMITRIPTYLINE 50 MG TAB PO SCH (20:05)
[2021-11-26] MEDS: BENZTROPINE 0.5 MG TAB PO SCH (09:52)
[2021-11-26] MEDS: NICOTINE 21MG/24HR 1 EA TRANSDERMAL TD SCH (09:52)
[2021-11-26] MEDS: DIVALPROEX 250MG *ER* TAB PO SCH (09:52)
[2021-11-26] MEDS: SERTRALINE 100 MG TAB PO SCH (09:52)
[2021-11-26] MEDS ORDERED: DEPA250T2 PO (11:48)
[2021-11-26] MEDS ORDERED: RISP-9 PO (11:48)
[2021-11-26] MEDS ORDERED: AMIT50TA PO (11:48)
[2021-11-26] MEDS ORDERED: DEPA500T2 PO (11:48)
[2021-11-26] MEDS ORDERED: ZOLO100T PO (11:48)
[2021-11-26] MEDS ORDERED: BENZ0.5T23 PO (11:48)
== END 2021-11-26 14:04 | disposition home or self-care (01) | DRG 885 ==
LOC: M ED 07:29 → M ED INP 11-12 10:27 → M PSY 11-12 12:28
PROVIDERS: ADMIT Psychiatry & Neurology Psychiatry; ATTEND Psychiatry & Neurology Psychiatry
DX: F25.9 Schizoaffective disorder, unspecified (principal); F17.210 Nicotine dependence, cigarettes, uncomplicated; Z91.14 Patient's other noncompliance with medication regimen; Z88.8 Allergy status to other drugs, medicaments and biological substances; Z79.899 Other long term (current) drug therapy

== ENCOUNTER 2022-04-07 02:42 | Inpatient (IN) | payer MEDICARE, MEDICAID ==
[~2022-04-07] VITALS: Ht 165.1 cm; Wt 129.5 kg
[~2022-04-07 02:42] MED LIST changes: +AMIT50TA PO; +DEPA250T2 PO; +DEPA500T2 PO; +NYST1POW9 TOP; +RISP-9 PO; +ZOLO100T PO
[2022-04-07] MEDS ORDERED: TIZA10TA PO (04:12)
[2022-04-07] MEDS ORDERED: ZOLO100T PO (04:12)
[2022-04-07] MEDS ORDERED: TRAZ1TAB10 PO (04:12)
[2022-04-07] MEDS ORDERED: LIDO1CRE2 EXT (04:12)
[2022-04-07] MEDS ORDERED: NYST1POW9 TOP (04:12)
[2022-04-07] MEDS ORDERED: DIVA500T9 PO (04:12)
[2022-04-07] MEDS ORDERED: SYST1SOL OU (04:12)
[2022-04-07] MEDS ORDERED: RISP-11 PO (04:12)
[2022-04-07] MEDS ORDERED: ACET-897 PO (04:12)
[2022-04-07] MEDS ORDERED: INVE3TAB2 PO (04:12)
[2022-04-07] MEDS ORDERED: ALBU8.5H INH (04:12)
[2022-04-07] MEDS ORDERED: DIVA250T7 PO (04:12)
[2022-04-07 04:14] LABS: HEMATOCRIT 50.2 % (36.0-47.0); HEMOGLOBIN 16.3 g/dl (12.0-15.5); MEAN CORPUSCULAR HEMOGLOBIN 28.8 pg (27.0-33.0); MEAN CORPUSCULAR HGB CONC 32.5 g/dl (32.0-36.5); MEAN CORPUSCULAR VOLUME 88.8 fl (80.0-96.0); PLATELET COUNT, AUTOMATED 332 10^3/uL (150-450); RED BLOOD COUNT 5.65 10^6/uL (4.00-5.40); WHITE BLOOD COUNT 14.8 10^3/uL (4.0-10.0)
[2022-04-07] MEDS ORDERED: HOME MED LIST COMPLETE! XX SCH (04:15)
[2022-04-07 04:34] LABS: ETHYL ALCOHOL (ETHANOL) 0.003 % (0.000-0.010); HCG, SERUM QUALITATIVE NEGATIVE (NEGATIVE)
[2022-04-07 04:35] LABS: ACETAMINOPHEN LEVEL < 2.0 UG/ML (10.0-20.0); VALPROIC ACID (DEPAKOTE) < 3.0 UG/ML (50.0-100.0)
[2022-04-07 04:36] LABS: ALBUMIN 4.2 G/DL (3.2-5.2); ALKALINE PHOSPHATASE 102 U/L (46-116); ALT/SGPT 16 U/L (7.0-40); AST/SGOT 19 U/L (<34); BILIRUBIN,DIRECT 0.2 MG/DL (<0.4); BILIRUBIN,TOTAL 0.6 MG/DL (0.3-1.2); BLOOD UREA NITROGEN 14 MG/DL (9-23); CALCIUM LEVEL 10.7 MG/DL (8.3-10.6); CARBON DIOXIDE LEVEL 24 MMOL/L (20-31); CHLORIDE LEVEL 107 MMOL/L (98-107); CREATININE FOR GFR 0.67 MG/DL (0.55-1.30); GLOMERULAR FILTRATION RATE > 60.0 (>45); GLUCOSE, FASTING 104 MG/DL (74-106); POTASSIUM SERUM 4.2 MMOL/L (3.5-5.1); SALICYLATE LEVEL < 3.0 MG/DL (<30); SODIUM LEVEL 137 MMOL/L (136-145); TOTAL PROTEIN 8.1 G/DL (5.7-8.2)
[2022-04-07 04:38] LABS: THYROID STIMULATING HORMONE 1.302 uIU/ML (0.55-4.78)
[2022-04-07 04:43] LABS: RSV AMPLIFICATION NEGATIVE (NEGATIVE)
[2022-04-07] MEDS ORDERED: traZODone 50 MG TAB PO PRN (07:50)
[2022-04-07] MEDS ORDERED: DIVALPROEX 250MG *ER* TAB PO SCH ×2 (09:00→21:00)
[2022-04-07] MEDS ORDERED: SERTRALINE 100 MG TAB PO SCH (09:00)
[2022-04-07] MEDS ORDERED: PALIPERIDONE 3MG ER TAB (INVEGA) PO SCH (09:00)
[2022-04-07] MEDS: LIDOCAINE 4% CREAM 5GM (LMX4) TOP SCH (09:00)
[2022-04-07] MEDS: NICOTINE 21MG/24HR 1 EA TRANSDERMAL TD SCH (09:00)
[2022-04-07] MEDS: NYSTATIN CREAM 15GM TOP SCH (09:00)
[2022-04-07] MEDS ORDERED: risperiDONE 2 MG TAB PO SCH (09:00)
[2022-04-07] MEDS ORDERED: ACETAMINOPHEN TAB 650MG DOSE (2X325MG) PO PRN (16:50)
[2022-04-07] MEDS ORDERED: MAALOX 30 ML SUSP *UDC PO PRN (16:50)
[2022-04-07] MEDS ORDERED: MOM 30ML SUSPENSION UDC PO PRN (16:50)
[2022-04-07] MEDS ORDERED: OLANZapine ORAL DISINTEGRATING TAB 5MG PO PRN (16:50)
[2022-04-07 17:36] VITALS: BP 138/70
[2022-04-07] MEDS: DIVALPROEX 250MG *ER* TAB PO SCH (21:00)
[2022-04-07] MEDS: PALIPERIDONE 3MG ER TAB (INVEGA) PO SCH (21:00)
[2022-04-07] MEDS: traZODone 50 MG TAB PO SCH (21:00)
[2022-04-08] MEDS: SERTRALINE HCL 50 MG TAB PO SCH (09:00)
[2022-04-08] MEDS: NICOTINE 21MG/24HR 1 EA TRANSDERMAL TD SCH (09:00)
[2022-04-08] MEDS: NYSTATIN CREAM 15GM TOP SCH (09:00)
[2022-04-08] MEDS: LIDOCAINE 4% CREAM 5GM (LMX4) TOP SCH (09:00)
[2022-04-08] MEDS: DIVALPROEX 500MG *ER* TAB PO SCH (09:00)
[2022-04-08] MEDS: PALIPERIDONE 3MG ER TAB (INVEGA) PO SCH ×2 (09:00→21:00)
[2022-04-08] MEDS ORDERED: diphenhydrAMINE 50MG/ML VIAL IM STA (09:24)
[2022-04-08] MEDS ORDERED: LORazepam 2 MG/ML VIAL IM STA (09:24)
[2022-04-08] MEDS ORDERED: HALOPERIDOL 5MG/ML 1ML VIAL IM STA (09:24)
[2022-04-08] MEDS ORDERED: LORazepam 1 MG TAB PO STA (11:35)
[2022-04-08] MEDS ORDERED: chlorproMAZINE INJ 50MG/2ML AMP IM STA (11:38)
[2022-04-08] MEDS: traZODone 50 MG TAB PO SCH (21:00)
[2022-04-08] MEDS: DIVALPROEX 250MG *ER* TAB PO SCH (21:00)
[2022-04-09] MEDS: DIVALPROEX 500MG *ER* TAB PO SCH (09:00)
[2022-04-09] MEDS: NYSTATIN CREAM 15GM TOP SCH (09:00)
[2022-04-09] MEDS: LIDOCAINE 4% CREAM 5GM (LMX4) TOP SCH (09:00)
[2022-04-09] MEDS: SERTRALINE HCL 50 MG TAB PO SCH (09:00)
[2022-04-09] MEDS: PALIPERIDONE 3MG ER TAB (INVEGA) PO SCH ×2 (09:00→21:00)
[2022-04-09] MEDS: NICOTINE 21MG/24HR 1 EA TRANSDERMAL TD SCH (09:00)
[2022-04-09] MEDS: traZODone 50 MG TAB PO SCH (21:00)
[2022-04-09] MEDS: DIVALPROEX 250MG *ER* TAB PO SCH (21:00)
[2022-04-10 06:37] VITALS: BP 155/64
[2022-04-10] MEDS: NICOTINE 21MG/24HR 1 EA TRANSDERMAL TD SCH (09:00)
[2022-04-10] MEDS: DIVALPROEX 500MG *ER* TAB PO SCH (09:00)
[2022-04-10] MEDS: SERTRALINE HCL 50 MG TAB PO SCH (09:00)
[2022-04-10] MEDS: NYSTATIN CREAM 15GM TOP SCH (09:00)
[2022-04-10] MEDS: PALIPERIDONE 3MG ER TAB (INVEGA) PO SCH ×2 (09:00→20:04)
[2022-04-10] MEDS: LIDOCAINE 4% CREAM 5GM (LMX4) TOP SCH (09:00)
[2022-04-10] MEDS: traZODone 50 MG TAB PO SCH (20:04)
[2022-04-10] MEDS: DIVALPROEX 250MG *ER* TAB PO SCH (20:04)
[2022-04-11] MEDS: NYSTATIN CREAM 15GM TOP SCH (08:08)
[2022-04-11] MEDS: NICOTINE 21MG/24HR 1 EA TRANSDERMAL TD SCH (08:08)
[2022-04-11] MEDS: LIDOCAINE 4% CREAM 5GM (LMX4) TOP SCH (08:08)
[2022-04-11] MEDS: SERTRALINE HCL 50 MG TAB PO SCH (08:08)
[2022-04-11] MEDS: DIVALPROEX 500MG *ER* TAB PO SCH (08:08)
[2022-04-11] MEDS: PALIPERIDONE 3MG ER TAB (INVEGA) PO SCH ×2 (08:08→20:14)
[2022-04-11] MEDS: traZODone 50 MG TAB PO SCH (20:14)
[2022-04-11] MEDS: DIVALPROEX 250MG *ER* TAB PO SCH (20:14)
[2022-04-12] MEDS: LIDOCAINE 4% CREAM 5GM (LMX4) TOP SCH (08:11)
[2022-04-12] MEDS: NYSTATIN CREAM 15GM TOP SCH (08:11)
[2022-04-12] MEDS: NICOTINE 21MG/24HR 1 EA TRANSDERMAL TD SCH (08:11)
[2022-04-12] MEDS: DIVALPROEX 500MG *ER* TAB PO SCH (08:12)
[2022-04-12] MEDS: SERTRALINE HCL 50 MG TAB PO SCH (08:12)
[2022-04-12] MEDS: PALIPERIDONE 3MG ER TAB (INVEGA) PO SCH ×2 (08:12→21:00)
[2022-04-12] MEDS: traZODone 50 MG TAB PO SCH (21:00)
[2022-04-12] MEDS: DIVALPROEX 250MG *ER* TAB PO SCH (21:00)
[2022-04-13] MEDS: DIVALPROEX 500MG *ER* TAB PO SCH (09:00)
[2022-04-13] MEDS: SERTRALINE HCL 50 MG TAB PO SCH (09:00)
[2022-04-13] MEDS: LIDOCAINE 4% CREAM 5GM (LMX4) TOP SCH (09:00)
[2022-04-13] MEDS: PALIPERIDONE 3MG ER TAB (INVEGA) PO SCH ×2 (09:00→21:00)
[2022-04-13] MEDS: NICOTINE 21MG/24HR 1 EA TRANSDERMAL TD SCH (09:00)
[2022-04-13] MEDS: NYSTATIN CREAM 15GM TOP SCH (09:00)
[2022-04-13] MEDS: DIVALPROEX 250MG *ER* TAB PO SCH (21:00)
[2022-04-13] MEDS: traZODone 50 MG TAB PO SCH (21:00)
[2022-04-14] MEDS: LIDOCAINE 4% CREAM 5GM (LMX4) TOP SCH (08:40)
[2022-04-14] MEDS: PALIPERIDONE 3MG ER TAB (INVEGA) PO SCH ×2 (08:40→21:00)
[2022-04-14] MEDS: SERTRALINE HCL 50 MG TAB PO SCH (08:40)
[2022-04-14] MEDS: DIVALPROEX 500MG *ER* TAB PO SCH (08:40)
[2022-04-14] MEDS: NICOTINE 21MG/24HR 1 EA TRANSDERMAL TD SCH (08:40)
[2022-04-14] MEDS: NYSTATIN CREAM 15GM TOP SCH (08:41)
[2022-04-14] MEDS: DIVALPROEX 250MG *ER* TAB PO SCH (21:00)
[2022-04-14] MEDS: traZODone 50 MG TAB PO SCH (21:00)
[2022-04-15] MEDS: NYSTATIN CREAM 15GM TOP SCH (08:48)
[2022-04-15] MEDS: PALIPERIDONE 3MG ER TAB (INVEGA) PO SCH ×2 (08:48→20:02)
[2022-04-15] MEDS: DIVALPROEX 500MG *ER* TAB PO SCH (08:48)
[2022-04-15] MEDS: LIDOCAINE 4% CREAM 5GM (LMX4) TOP SCH (08:48)
[2022-04-15] MEDS: SERTRALINE HCL 50 MG TAB PO SCH (08:48)
[2022-04-15] MEDS: NICOTINE 21MG/24HR 1 EA TRANSDERMAL TD SCH (08:48)
[2022-04-15] MEDS: DIVALPROEX 250MG *ER* TAB PO SCH (20:01)
[2022-04-15] MEDS: traZODone 50 MG TAB PO SCH (20:02)
[2022-04-16] MEDS: PALIPERIDONE 3MG ER TAB (INVEGA) PO SCH ×2 (08:42→21:00)
[2022-04-16] MEDS: DIVALPROEX 500MG *ER* TAB PO SCH (08:42)
[2022-04-16] MEDS: SERTRALINE HCL 50 MG TAB PO SCH (08:42)
[2022-04-16] MEDS: NICOTINE 21MG/24HR 1 EA TRANSDERMAL TD SCH (08:42)
[2022-04-16] MEDS: NYSTATIN CREAM 15GM TOP SCH (08:43)
[2022-04-16] MEDS: LIDOCAINE 4% CREAM 5GM (LMX4) TOP SCH (08:43)
[2022-04-16] MEDS: DIVALPROEX 250MG *ER* TAB PO SCH (21:00)
[2022-04-16] MEDS: traZODone 50 MG TAB PO SCH (21:00)
[2022-04-17] MEDS: SERTRALINE HCL 50 MG TAB PO SCH (09:00)
[2022-04-17] MEDS: DIVALPROEX 500MG *ER* TAB PO SCH (09:00)
[2022-04-17] MEDS: LIDOCAINE 4% CREAM 5GM (LMX4) TOP SCH (09:00)
[2022-04-17] MEDS: PALIPERIDONE 3MG ER TAB (INVEGA) PO SCH ×2 (09:00→20:26)
[2022-04-17] MEDS: NYSTATIN CREAM 15GM TOP SCH (09:00)
[2022-04-17] MEDS: NICOTINE 21MG/24HR 1 EA TRANSDERMAL TD SCH (09:00)
[2022-04-17] MEDS: traZODone 50 MG TAB PO SCH (20:26)
[2022-04-17] MEDS: DIVALPROEX 250MG *ER* TAB PO SCH (20:26)
[2022-04-18] MEDS: PALIPERIDONE 3MG ER TAB (INVEGA) PO SCH ×2 (09:00→21:00)
[2022-04-18] MEDS: SERTRALINE HCL 50 MG TAB PO SCH (09:00)
[2022-04-18] MEDS: LIDOCAINE 4% CREAM 5GM (LMX4) TOP SCH (09:00)
[2022-04-18] MEDS: NYSTATIN CREAM 15GM TOP SCH (09:00)
[2022-04-18] MEDS: DIVALPROEX 500MG *ER* TAB PO SCH (09:00)
[2022-04-18] MEDS: NICOTINE 21MG/24HR 1 EA TRANSDERMAL TD SCH (09:00)
[2022-04-18] MEDS: DIVALPROEX 250MG *ER* TAB PO SCH (10:13)
[2022-04-18] MEDS: traZODone 50 MG TAB PO SCH (21:00)
[2022-04-19] MEDS: DIVALPROEX 500MG *ER* TAB PO SCH (08:40)
[2022-04-19] MEDS: PALIPERIDONE 3MG ER TAB (INVEGA) PO SCH ×2 (08:41→21:00)
[2022-04-19] MEDS: SERTRALINE HCL 50 MG TAB PO SCH (08:41)
[2022-04-19] MEDS: NICOTINE 21MG/24HR 1 EA TRANSDERMAL TD SCH (08:41)
[2022-04-19] MEDS: LIDOCAINE 4% CREAM 5GM (LMX4) TOP SCH (08:42)
[2022-04-19] MEDS: NYSTATIN CREAM 15GM TOP SCH (08:42)
[2022-04-19] MEDS: DIVALPROEX 250MG *ER* TAB PO SCH (21:00)
[2022-04-19] MEDS: traZODone 50 MG TAB PO SCH (21:00)
[2022-04-20] MEDS: PALIPERIDONE 3MG ER TAB (INVEGA) PO SCH ×2 (08:19→21:00)
[2022-04-20] MEDS: DIVALPROEX 500MG *ER* TAB PO SCH (08:19)
[2022-04-20] MEDS: SERTRALINE HCL 50 MG TAB PO SCH (08:20)
[2022-04-20] MEDS: NICOTINE 21MG/24HR 1 EA TRANSDERMAL TD SCH (08:20)
[2022-04-20] MEDS: LIDOCAINE 4% CREAM 5GM (LMX4) TOP SCH (08:20)
[2022-04-20] MEDS: NYSTATIN CREAM 15GM TOP SCH (08:20)
[2022-04-20] MEDS: DIVALPROEX 250MG *ER* TAB PO SCH (21:00)
[2022-04-20] MEDS: traZODone 50 MG TAB PO SCH (21:00)
[2022-04-21] MEDS: SERTRALINE HCL 50 MG TAB PO SCH (08:09)
[2022-04-21] MEDS: NYSTATIN CREAM 15GM TOP SCH (08:09)
[2022-04-21] MEDS: DIVALPROEX 500MG *ER* TAB PO SCH (08:09)
[2022-04-21] MEDS: LIDOCAINE 4% CREAM 5GM (LMX4) TOP SCH (08:09)
[2022-04-21] MEDS: PALIPERIDONE 3MG ER TAB (INVEGA) PO SCH ×2 (08:09→20:43)
[2022-04-21] MEDS: NICOTINE 21MG/24HR 1 EA TRANSDERMAL TD SCH (08:09)
[2022-04-21] MEDS: DIVALPROEX 250MG *ER* TAB PO SCH (20:43)
[2022-04-21] MEDS: traZODone 50 MG TAB PO SCH (20:43)
[2022-04-22] MEDS: NICOTINE 21MG/24HR 1 EA TRANSDERMAL TD SCH (08:00)
[2022-04-22] MEDS: NYSTATIN CREAM 15GM TOP SCH (08:00)
[2022-04-22] MEDS: LIDOCAINE 4% CREAM 5GM (LMX4) TOP SCH (08:00)
[2022-04-22] MEDS: SERTRALINE HCL 50 MG TAB PO SCH ×2 (08:01→10:13)
[2022-04-22] MEDS: DIVALPROEX 500MG *ER* TAB PO SCH ×2 (08:01→10:13)
[2022-04-22] MEDS: PALIPERIDONE 3MG ER TAB (INVEGA) PO SCH ×3 (08:01→21:00)
[2022-04-22] MEDS: DIVALPROEX 250MG *ER* TAB PO SCH (21:00)
[2022-04-22] MEDS: traZODone 50 MG TAB PO SCH (21:00)
[2022-04-23] MEDS: DIVALPROEX 500MG *ER* TAB PO SCH (08:25)
[2022-04-23] MEDS: SERTRALINE HCL 50 MG TAB PO SCH (08:25)
[2022-04-23] MEDS: PALIPERIDONE 3MG ER TAB (INVEGA) PO SCH (08:25)
[2022-04-23] MEDS: NICOTINE 21MG/24HR 1 EA TRANSDERMAL TD SCH (08:26)
[2022-04-23] MEDS: NYSTATIN CREAM 15GM TOP SCH (08:26)
[2022-04-23] MEDS: LIDOCAINE 4% CREAM 5GM (LMX4) TOP SCH (08:26)
[2022-04-23] MEDS ORDERED: PALIPERIDONE PAL 234MG/1.5ML INJ (INVEGA)(FREE PSY INPT ONLY) IM ONE (10:00)
[2022-04-23] MEDS ORDERED: INVE234I IM (10:42)
[2022-04-23] MEDS ORDERED: BENZ0.5T23 PO (11:17)
== END 2022-04-23 11:27 | disposition home or self-care (01) | DRG 885 ==
LOC: M ED 02:42 → M ED INP 16:49 → M PSY 19:14
PROVIDERS: ADMIT Psychiatry & Neurology Psychiatry; ATTEND Psychiatry & Neurology Psychiatry
DX: F25.0 Schizoaffective disorder, bipolar type (principal); Z68.42 Body mass index [BMI] 45.0-49.9, adult; F17.200 Nicotine dependence, unspecified, uncomplicated; Z91.14 Patient's other noncompliance with medication regimen; Z88.8 Allergy status to other drugs, medicaments and biological substances; Z79.899 Other long term (current) drug therapy; E66.01 Morbid (severe) obesity due to excess calories

== ENCOUNTER 2022-04-26 11:09 | Emergency (ER) | payer MEDICARE, MEDICAID ==
[~2022-04-26] VITALS: Ht 165.1 cm; Wt 106.8 kg
[2022-04-26 11:09] VITALS: BP 148/81
[~2022-04-26 11:09] MED LIST changes: +ACET-897 PO; +ALBU8.5H INH; +DIVA250T7 PO; +DIVA500T9 PO; +INVE3TAB2 PO; +LIDO1CRE2 EXT; +SYST1SOL OU; +TIZA10TA PO; +TRAZ1TAB10 PO
[2022-04-27] MEDS ORDERED: BENZ0.5T23 PO (21:30)
[2022-04-27] MEDS ORDERED: INVE234I IM (21:30)
== END 2022-04-26 14:50 | disposition left against medical advice (07) ==
LOC: M ED 11:09
DX: F25.9 Schizoaffective disorder, unspecified (principal); E66.9 Obesity, unspecified; F17.200 Nicotine dependence, unspecified, uncomplicated; Z88.8 Allergy status to other drugs, medicaments and biological substances; Z79.51 Long term (current) use of inhaled steroids; Z79.899 Other long term (current) drug therapy; Z53.9 Procedure and treatment not carried out, unspecified reason

== ENCOUNTER 2022-04-27 19:42 | Inpatient (IN) | payer MEDICARE, MEDICAID ==
[~2022-04-27] VITALS: Ht 165.1 cm; Wt 143.8 kg
[2022-04-27] MEDS ORDERED: INVE234I IM (21:30)
[2022-04-27] MEDS ORDERED: BENZ0.5T23 PO (21:30)
[2022-04-28] MEDS ORDERED: HOME MED LIST COMPLETE! XX SCH
[2022-04-28 00:29] LABS: HEMATOCRIT 42.6 % (36.0-47.0); HEMOGLOBIN 13.7 g/dl (12.0-15.5); MEAN CORPUSCULAR HEMOGLOBIN 29.3 pg (27.0-33.0); MEAN CORPUSCULAR HGB CONC 32.2 g/dl (32.0-36.5); PLATELET COUNT, AUTOMATED 310 10^3/uL (150-450); RED BLOOD COUNT 4.68 10^6/uL (4.00-5.40); WHITE BLOOD COUNT 11.4 10^3/uL (4.0-10.0)
[2022-04-28 01:00] LABS: ETHYL ALCOHOL (ETHANOL) 0.003 % (0.000-0.010)
[2022-04-28 01:02] LABS: ALBUMIN 3.2 G/DL (3.2-5.2); ALKALINE PHOSPHATASE 82 U/L (46-116); ALT/SGPT < 9 U/L (7.0-40); AST/SGOT 10 U/L (<34); BILIRUBIN,DIRECT < 0.1 MG/DL (<0.4); BILIRUBIN,TOTAL 0.2 MG/DL (0.3-1.2); BLOOD UREA NITROGEN 14 MG/DL (9-23); CALCIUM LEVEL 9.5 MG/DL (8.3-10.6); CARBON DIOXIDE LEVEL 26 MMOL/L (20-31); CHLORIDE LEVEL 102 MMOL/L (98-107); GLOMERULAR FILTRATION RATE > 60.0 (>45); GLUCOSE, FASTING 161 MG/DL (74-106); POTASSIUM SERUM 3.9 MMOL/L (3.5-5.1); SALICYLATE LEVEL < 3.0 MG/DL (<30); SODIUM LEVEL 138 MMOL/L (136-145); TOTAL PROTEIN 6.5 G/DL (5.7-8.2)
[2022-04-28 01:03] LABS: ACETAMINOPHEN LEVEL < 2.0 UG/ML (10.0-20.0)
[2022-04-28 08:22] LABS: RSV AMPLIFICATION NEGATIVE (NEGATIVE)
[2022-04-28] MEDS ORDERED: INVE234I IM (08:24)
[2022-04-28] MEDS: BENZTROPINE 0.5 MG TAB PO SCH ×3 (09:00→22:23)
[2022-04-28] MEDS: DIVALPROEX 500MG *ER* TAB PO SCH ×2 (09:00→14:12)
[2022-04-28 16:43] LABS: AMPHETAMINES LEVEL URINE NEGATIVE (NEGATIVE); BARBITURATES URINE NEGATIVE (NEGATIVE); BENZODIAZEPINES URINE NEGATIVE (NEGATIVE); CANNABINOIDS URINE NEGATIVE (NEGATIVE); COCAINE METABOLITE URINE NEGATIVE (NEGATIVE); METHADONE URINE NEGATIVE (NEGATIVE); OPIATES URINE NEGATIVE (NEGATIVE); PHENCYCLIDINE URINE NEGATIVE (NEGATIVE)
[2022-04-28] MEDS ORDERED: DIVALPROEX 250MG *ER* TAB PO SCH ×2 (21:00)
[2022-04-28] MEDS ORDERED: BENZTROPINE 0.5 MG TAB PO SCH (21:00)
[2022-04-28] MEDS ORDERED: MAALOX 30 ML SUSP *UDC PO PRN (23:10)
[2022-04-28] MEDS ORDERED: ALBUTEROL 90 MCG/ACT 8GM HFA INHALER INH PRN (23:10)
[2022-04-28] MEDS ORDERED: MOM 30ML SUSPENSION UDC PO PRN (23:10)
[2022-04-28] MEDS ORDERED: POLYVINYL ALCOHOL OPHTH SOLN 15ML (LIQUITEARS) OU PRN (23:10)
[2022-04-28] MEDS ORDERED: traZODone 50 MG TAB PO PRN (23:10)
[2022-04-29] MEDS: BENZTROPINE 0.5 MG TAB PO SCH ×2 (09:58→21:00)
[2022-04-29] MEDS: DIVALPROEX 500MG *ER* TAB PO SCH ×2 (09:59→21:00)
[2022-04-29] MEDS ORDERED: PALIPERIDONE PAL 156MG/1ML INJ(INVEGA)(FREE PSY INPT ONLY) IM ONE (14:00)
[2022-04-29] MEDS ORDERED: DIVALPROEX 250MG *ER* TAB PO SCH (21:00)
[2022-04-30] MEDS: ACETAMINOPHEN TAB 650MG DOSE (2X325MG) PO PRN ×2 (03:59→21:32)
[2022-04-30] MEDS: DIVALPROEX 500MG *ER* TAB PO SCH ×2 (09:00→21:32)
[2022-04-30] MEDS: BENZTROPINE 0.5 MG TAB PO SCH ×2 (09:00→21:31)
[2022-04-30] MEDS: RIVAROXABAN 10MG TAB (XARELTO) PO SCH (17:53)
[2022-05-01] MEDS: DIVALPROEX 500MG *ER* TAB PO SCH ×2 (08:59→21:00)
[2022-05-01] MEDS: BENZTROPINE 0.5 MG TAB PO SCH ×2 (08:59→21:00)
[2022-05-01] MEDS: RIVAROXABAN 10MG TAB (XARELTO) PO SCH (17:44)
[2022-05-02] MEDS: DIVALPROEX 500MG *ER* TAB PO SCH ×2 (09:00→21:00)
[2022-05-02] MEDS: BENZTROPINE 0.5 MG TAB PO SCH ×2 (09:45→21:00)
[2022-05-02] MEDS: RIVAROXABAN 10MG TAB (XARELTO) PO SCH (17:53)
[2022-05-03] MEDS: DIVALPROEX 500MG *ER* TAB PO SCH ×2 (09:00→21:00)
[2022-05-03] MEDS: BENZTROPINE 0.5 MG TAB PO SCH ×3 (09:00→21:00)
[2022-05-03] MEDS: RIVAROXABAN 10MG TAB (XARELTO) PO SCH (17:21)
[2022-05-04] MEDS: BENZTROPINE 0.5 MG TAB PO SCH ×2 (09:46→20:22)
[2022-05-04] MEDS: DIVALPROEX 500MG *ER* TAB PO SCH ×2 (09:46→20:22)
[2022-05-04] MEDS: RIVAROXABAN 10MG TAB (XARELTO) PO SCH (18:33)
[2022-05-04 19:04] VITALS: BP 156/74
[2022-05-05] MEDS: DIVALPROEX 500MG *ER* TAB PO SCH ×2 (08:43→21:00)
[2022-05-05] MEDS: BENZTROPINE 0.5 MG TAB PO SCH ×2 (08:43→21:30)
[2022-05-05] MEDS: RIVAROXABAN 10MG TAB (XARELTO) PO SCH (18:17)
[2022-05-05 18:36] VITALS: BP 158/68
[2022-05-06] MEDS: BENZTROPINE 0.5 MG TAB PO SCH ×2 (09:12→18:31)
[2022-05-06] MEDS: DIVALPROEX 500MG *ER* TAB PO SCH (09:13)
[2022-05-06] MEDS ORDERED: DIVALPROEX 500MG *ER* TAB PO SCH (18:00)
[2022-05-06] MEDS: RIVAROXABAN 10MG TAB (XARELTO) PO SCH (18:31)
[2022-05-06 19:34] VITALS: BP 141/61
[2022-05-07 06:26] VITALS: BP 122/71
[2022-05-07] MEDS: BENZTROPINE 0.5 MG TAB PO SCH ×2 (08:46→17:38)
[2022-05-07] MEDS: DIVALPROEX 500MG *ER* TAB PO SCH (08:46)
[2022-05-07] MEDS: RIVAROXABAN 10MG TAB (XARELTO) PO SCH (17:38)
[2022-05-08 06:29] VITALS: BP 141/70
[2022-05-08] MEDS: DIVALPROEX 500MG *ER* TAB PO SCH (09:32)
[2022-05-08] MEDS: BENZTROPINE 0.5 MG TAB PO SCH ×2 (09:32→17:38)
[2022-05-08] MEDS: RIVAROXABAN 10MG TAB (XARELTO) PO SCH (17:37)
[2022-05-08 17:43] VITALS: BP 123/72
[2022-05-09 06:16] VITALS: BP 134/73
[2022-05-09] MEDS: DIVALPROEX 500MG *ER* TAB PO SCH (09:04)
[2022-05-09] MEDS: BENZTROPINE 0.5 MG TAB PO SCH ×2 (09:04→18:18)
[2022-05-09 17:50] VITALS: BP 126/58
[2022-05-09] MEDS: RIVAROXABAN 10MG TAB (XARELTO) PO SCH (18:18)
[2022-05-10] MEDS: DIVALPROEX 500MG *ER* TAB PO SCH (08:51)
[2022-05-10] MEDS: BENZTROPINE 0.5 MG TAB PO SCH (08:51)
[2022-05-10] MEDS ORDERED: DEPA500T2 PO (11:42)
[2022-05-10] MEDS ORDERED: XARE10TA PO (11:42)
[2022-05-10] MEDS ORDERED: RISP4TAB33 PO (11:42)
[2022-05-10] MEDS ORDERED: INVE234I IM (11:46)
[2022-05-10] MEDS ORDERED: PALIPERIDONE PAL 156MG/1ML INJ(INVEGA)(FREE PSY INPT ONLY) IM ONE (12:00)
== END 2022-05-10 13:35 | disposition home or self-care (01) | DRG 885 ==
LOC: M ED 19:42 → M ED INP 04-28 23:06 → M PSY 04-28 23:59
PROVIDERS: ADMIT Psychiatry & Neurology Psychiatry; ATTEND Psychiatry & Neurology Psychiatry
DX: F25.0 Schizoaffective disorder, bipolar type (principal); Z68.42 Body mass index [BMI] 45.0-49.9, adult; E66.01 Morbid (severe) obesity due to excess calories; F79 Unspecified intellectual disabilities; F60.89 Other specific personality disorders; F17.200 Nicotine dependence, unspecified, uncomplicated; Z91.119 Patient's noncompliance with dietary regimen due to unspecified reason; Z88.8 Allergy status to other drugs, medicaments and biological substances; Z79.899 Other long term (current) drug therapy; Z91.14 Patient's other noncompliance with medication regimen

== ENCOUNTER 2022-07-19 00:57 | Inpatient (IN) | payer MEDICARE, MEDICAID ==
[~2022-07-19] VITALS: Ht 165.1 cm; Wt 144.0 kg
[~2022-07-19 00:57] MED LIST changes: +RISP4TAB33 PO; +XARE10TA PO
[2022-07-19] MEDS ORDERED: DIVA500T9 PO (01:58)
[2022-07-19] MEDS ORDERED: XARE10TA PO (01:58)
[2022-07-19] MEDS ORDERED: med rec comment (01:59)
[2022-07-19 02:00] LABS: HEMATOCRIT 41.4 % (36.0-47.0); HEMOGLOBIN 13.6 g/dl (12.0-15.5); MEAN CORPUSCULAR HEMOGLOBIN 29.8 pg (27.0-33.0); MEAN CORPUSCULAR HGB CONC 32.9 g/dl (32.0-36.5); MEAN CORPUSCULAR VOLUME 90.6 fl (80.0-96.0); PLATELET COUNT, AUTOMATED 254 10^3/uL (150-450); RED BLOOD COUNT 4.57 10^6/uL (4.00-5.40); WHITE BLOOD COUNT 11.1 10^3/uL (4.0-10.0)
[2022-07-19] MEDS ORDERED: HOME MED LIST COMPLETE! XX SCH (02:00)
[2022-07-19 02:25] LABS: ETHYL ALCOHOL (ETHANOL) < 0.003 % (0.000-0.010)
[2022-07-19 02:26] LABS: ACETAMINOPHEN LEVEL < 2.0 UG/ML (10.0-20.0)
[2022-07-19 02:27] LABS: SALICYLATE LEVEL < 3.0 MG/DL (<30)
[2022-07-19 02:40] LABS: ALBUMIN 3.3 G/DL (3.2-5.2); ALKALINE PHOSPHATASE 100 U/L (46-116); ALT/SGPT 14 U/L (7.0-40); AST/SGOT 10 U/L (<34); BILIRUBIN,DIRECT 0.1 MG/DL (<0.4); BILIRUBIN,TOTAL 0.4 MG/DL (0.3-1.2); BLOOD UREA NITROGEN 16 MG/DL (9-23); CARBON DIOXIDE LEVEL 25 MMOL/L (20-31); CHLORIDE LEVEL 105 MMOL/L (98-107); CREATININE FOR GFR 0.62 MG/DL (0.55-1.30); GLOMERULAR FILTRATION RATE > 60.0 (>45); GLUCOSE, FASTING 117 MG/DL (74-106); POTASSIUM SERUM 4.3 MMOL/L (3.5-5.1); SODIUM LEVEL 138 MMOL/L (136-145); THYROID STIMULATING HORMONE 1.866 uIU/ML (0.55-4.78)
[2022-07-19 03:14] LABS: TOTAL PROTEIN 6.3 G/DL (5.7-8.2)
[2022-07-19] MEDS ORDERED: MAALOX 30 ML SUSP *UDC PO PRN (14:35)
[2022-07-19] MEDS ORDERED: MOM 30ML SUSPENSION UDC PO PRN (14:35)
[2022-07-19] MEDS ORDERED: LORazepam 1 MG TAB PO PRN (14:35)
[2022-07-19] MEDS ORDERED: traZODone 50 MG TAB PO PRN (14:35)
[2022-07-19] MEDS ORDERED: IBUPROFEN 400MG TAB PO PRN (14:35)
[2022-07-19] MEDS ORDERED: diphenhydrAMINE 25MG CAP PO PRN (14:35)
[2022-07-19] MEDS: DIVALPROEX 500MG *ER* TAB PO SCH (15:05)
[2022-07-19] MEDS: RIVAROXABAN 10MG TAB (XARELTO) PO SCH (18:00)
[2022-07-19] MEDS: BENZTROPINE 0.5 MG TAB PO SCH (21:00)
[2022-07-19] MEDS: NICOTINE 14 MG/24 HR TRANSDERMAL TD SCH (22:00)
[2022-07-20] MEDS: NICOTINE 14 MG/24 HR TRANSDERMAL TD SCH (09:00)
[2022-07-20] MEDS: BENZTROPINE 0.5 MG TAB PO SCH ×2 (09:53→21:00)
[2022-07-20] MEDS: DIVALPROEX 500MG *ER* TAB PO SCH (09:53)
[2022-07-20] MEDS ORDERED: **hydrALAZINE HCL** 25 MG TAB PO PRN (14:55)
[2022-07-20] MEDS: amLODIPine 5 MG TAB PO SCH (15:34)
[2022-07-20 16:24] VITALS: BP 142/66
[2022-07-20] MEDS: RIVAROXABAN 10MG TAB (XARELTO) PO SCH (18:27)
[2022-07-21] MEDS: NICOTINE 14 MG/24 HR TRANSDERMAL TD SCH (09:00)
[2022-07-21] MEDS: DIVALPROEX 500MG *ER* TAB PO SCH (09:32)
[2022-07-21] MEDS: PALIPERIDONE 3MG ER TAB (INVEGA) PO SCH ×2 (09:32→20:57)
[2022-07-21] MEDS: amLODIPine 5 MG TAB PO SCH (09:32)
[2022-07-21] MEDS: BENZTROPINE 0.5 MG TAB PO SCH ×2 (09:32→20:57)
[2022-07-21 09:38] VITALS: BP 144/75
[2022-07-21 16:36] VITALS: BP 137/63
[2022-07-21] MEDS: RIVAROXABAN 10MG TAB (XARELTO) PO SCH (18:14)
[2022-07-22 06:14] VITALS: BP 138/73
[2022-07-22] MEDS: NICOTINE 14 MG/24 HR TRANSDERMAL TD SCH (09:00)
[2022-07-22] MEDS: BENZTROPINE 0.5 MG TAB PO SCH ×2 (11:08→21:27)
[2022-07-22] MEDS: DIVALPROEX 500MG *ER* TAB PO SCH (11:08)
[2022-07-22] MEDS: PALIPERIDONE 3MG ER TAB (INVEGA) PO SCH ×2 (11:08→21:27)
[2022-07-22] MEDS: amLODIPine 5 MG TAB PO SCH (11:08)
[2022-07-22] MEDS: RIVAROXABAN 10MG TAB (XARELTO) PO SCH (18:21)
[2022-07-23] MEDS: NICOTINE 14 MG/24 HR TRANSDERMAL TD SCH (09:00)
[2022-07-23] MEDS: PALIPERIDONE 3MG ER TAB (INVEGA) PO SCH ×2 (09:41→21:29)
[2022-07-23] MEDS: BENZTROPINE 0.5 MG TAB PO SCH ×2 (09:41→21:29)
[2022-07-23] MEDS: DIVALPROEX 500MG *ER* TAB PO SCH (09:42)
[2022-07-23] MEDS: amLODIPine 5 MG TAB PO SCH (09:48)
[2022-07-23 16:39] VITALS: BP 123/59
[2022-07-23] MEDS: RIVAROXABAN 10MG TAB (XARELTO) PO SCH (17:41)
[2022-07-24 06:24] VITALS: BP 160/84
[2022-07-24] MEDS: BENZTROPINE 0.5 MG TAB PO SCH ×2 (07:50→21:31)
[2022-07-24] MEDS: amLODIPine 5 MG TAB PO SCH (07:51)
[2022-07-24] MEDS: PALIPERIDONE 3MG ER TAB (INVEGA) PO SCH ×2 (07:51→21:31)
[2022-07-24] MEDS: DIVALPROEX 500MG *ER* TAB PO SCH (07:51)
[2022-07-24] MEDS: NICOTINE 14 MG/24 HR TRANSDERMAL TD SCH (07:55)
[2022-07-24] MEDS ORDERED: PALIPERIDONE PAL 234MG/1.5ML INJ (INVEGA)(FREE PSY INPT ONLY) IM ONE (09:00)
[2022-07-24] MEDS: RIVAROXABAN 10MG TAB (XARELTO) PO SCH (17:36)
[2022-07-25 07:33] VITALS: BP 134/67
[2022-07-25] MEDS: amLODIPine 5 MG TAB PO SCH (07:33)
[2022-07-25] MEDS: BENZTROPINE 0.5 MG TAB PO SCH ×2 (07:33→21:01)
[2022-07-25] MEDS: NICOTINE 14 MG/24 HR TRANSDERMAL TD SCH (07:34)
[2022-07-25] MEDS: DIVALPROEX 500MG *ER* TAB PO SCH (07:34)
[2022-07-25] MEDS: PALIPERIDONE 3MG ER TAB (INVEGA) PO SCH ×2 (07:34→21:01)
[2022-07-25 16:45] VITALS: BP 135/62
[2022-07-25] MEDS: RIVAROXABAN 10MG TAB (XARELTO) PO SCH (18:20)
[2022-07-26] MEDS: DIVALPROEX 500MG *ER* TAB PO SCH (09:00)
[2022-07-26] MEDS: BENZTROPINE 0.5 MG TAB PO SCH ×2 (09:00→21:00)
[2022-07-26] MEDS: PALIPERIDONE 3MG ER TAB (INVEGA) PO SCH ×2 (09:00→21:00)
[2022-07-26] MEDS: NICOTINE 14 MG/24 HR TRANSDERMAL TD SCH (09:00)
[2022-07-26] MEDS: RIVAROXABAN 10MG TAB (XARELTO) PO SCH (17:55)
[2022-07-27 07:50] VITALS: BP 136/78
[2022-07-27] MEDS: DIVALPROEX 500MG *ER* TAB PO SCH (07:56)
[2022-07-27] MEDS: PALIPERIDONE 3MG ER TAB (INVEGA) PO SCH ×2 (07:57→20:51)
[2022-07-27] MEDS: BENZTROPINE 0.5 MG TAB PO SCH ×2 (07:57→20:51)
[2022-07-27] MEDS: NICOTINE 14 MG/24 HR TRANSDERMAL TD SCH (09:00)
[2022-07-27] MEDS: RIVAROXABAN 10MG TAB (XARELTO) PO SCH (18:37)
[2022-07-28] MEDS: DIVALPROEX 500MG *ER* TAB PO SCH (11:07)
[2022-07-28] MEDS: PALIPERIDONE 3MG ER TAB (INVEGA) PO SCH ×2 (11:07→22:05)
[2022-07-28] MEDS: BENZTROPINE 0.5 MG TAB PO SCH ×2 (11:07→22:05)
[2022-07-28] MEDS: NICOTINE 14 MG/24 HR TRANSDERMAL TD SCH (11:08)
[2022-07-28] MEDS: RIVAROXABAN 10MG TAB (XARELTO) PO SCH (17:47)
[2022-07-29] MEDS: DIVALPROEX 500MG *ER* TAB PO SCH (08:25)
[2022-07-29] MEDS: BENZTROPINE 0.5 MG TAB PO SCH ×2 (08:25→21:23)
[2022-07-29 08:26] VITALS: BP 141/83
[2022-07-29] MEDS: NICOTINE 14 MG/24 HR TRANSDERMAL TD SCH (09:00)
[2022-07-29] MEDS: RIVAROXABAN 10MG TAB (XARELTO) PO SCH (17:56)
[2022-07-29 18:57] VITALS: BP 150/76
[2022-07-29] MEDS: PALIPERIDONE 3MG ER TAB (INVEGA) PO SCH (21:23)
[2022-07-30 06:38] VITALS: BP 137/72
[2022-07-30] MEDS: DIVALPROEX 500MG *ER* TAB PO SCH (08:00)
[2022-07-30] MEDS: BENZTROPINE 0.5 MG TAB PO SCH ×2 (08:00→20:46)
[2022-07-30] MEDS: NICOTINE 14 MG/24 HR TRANSDERMAL TD SCH (08:01)
[2022-07-30] MEDS ORDERED: INVE234I IM (08:04)
[2022-07-30] MEDS ORDERED: XARE10TA PO (08:04)
[2022-07-30] MEDS ORDERED: NICO14PA TD (08:04)
[2022-07-30] MEDS ORDERED: PALI1TAB2 PO (08:04)
[2022-07-30] MEDS ORDERED: HYDR-3490 PO (08:04)
[2022-07-30] MEDS ORDERED: DIVA500T9 PO (08:04)
[2022-07-30 16:22] VITALS: BP 138/80
[2022-07-30] MEDS: RIVAROXABAN 10MG TAB (XARELTO) PO SCH (18:19)
[2022-07-30] MEDS: PALIPERIDONE 3MG ER TAB (INVEGA) PO SCH (20:46)
[2022-07-30] MEDS ORDERED: DIVALPROEX 500 MG TAB PO SCH (21:00)
[2022-07-31] MEDS: NICOTINE 14 MG/24 HR TRANSDERMAL TD SCH (09:00)
[2022-07-31] MEDS: DIVALPROEX 250MG *ER* TAB PO SCH (09:47)
[2022-07-31] MEDS: BENZTROPINE 0.5 MG TAB PO SCH ×2 (09:47→20:34)
[2022-07-31] MEDS: RIVAROXABAN 10MG TAB (XARELTO) PO SCH (17:14)
[2022-07-31 18:00] VITALS: BP 142/88
[2022-07-31] MEDS: PALIPERIDONE 3MG ER TAB (INVEGA) PO SCH (20:35)
[2022-08-01] MEDS: BENZTROPINE 0.5 MG TAB PO SCH ×2 (09:00→20:37)
[2022-08-01] MEDS: DIVALPROEX 250MG *ER* TAB PO SCH (09:00)
[2022-08-01] MEDS: NICOTINE 14 MG/24 HR TRANSDERMAL TD SCH (09:00)
[2022-08-01] MEDS: RIVAROXABAN 10MG TAB (XARELTO) PO SCH (17:35)
[2022-08-01] MEDS: PALIPERIDONE 3MG ER TAB (INVEGA) PO SCH (20:36)
[2022-08-02 06:25] VITALS: BP 163/83
[2022-08-02] MEDS: DIVALPROEX 500MG *ER* TAB PO SCH ×2 (08:15→08:23)
[2022-08-02] MEDS: BENZTROPINE 0.5 MG TAB PO SCH ×2 (08:16→08:24)
[2022-08-02] MEDS: NICOTINE 14 MG/24 HR TRANSDERMAL TD SCH ×2 (08:17→08:24)
[2022-08-02] MEDS ORDERED: XARE10TA PO (12:43)
[2022-08-02] MEDS ORDERED: BENZ0.5T23 PO (12:43)
== END 2022-08-02 15:05 | disposition home or self-care (01) | DRG 885 ==
LOC: M ED 00:57 → UNDOADMIN 14:32 → M ED INP 14:32 → M PSY 07-20 02:43
PROVIDERS: ADMIT Student in an Organized Health Care Education/Training Program; ATTEND Psychiatry & Neurology Psychiatry
DX: F25.0 Schizoaffective disorder, bipolar type (principal); E66.01 Morbid (severe) obesity due to excess calories; F60.89 Other specific personality disorders; F17.200 Nicotine dependence, unspecified, uncomplicated; F79 Unspecified intellectual disabilities; Z91.128 Patient's intentional underdosing of medication regimen for other reason; Z88.8 Allergy status to other drugs, medicaments and biological substances; Z79.899 Other long term (current) drug therapy; R45.850 Homicidal ideations; I10 Essential (primary) hypertension; R60.9 Edema, unspecified

== ENCOUNTER 2022-08-08 01:50 | Emergency (ER) | payer MEDICARE, MEDICAID ==
[~2022-08-08] VITALS: Ht 166.4 cm; Wt 147.3 kg
[~2022-08-08 01:50] MED LIST changes: +HYDR-3490 PO; +NICO14PA TD; +PALI1TAB2 PO; +med rec comment
[2022-08-08 02:10] VITALS: BP 150/80
== END 2022-08-08 05:08 | disposition left against medical advice (07) ==
LOC: EDBD 01:50 → M ED 01:50
DX: Z53.21 Procedure and treatment not carried out due to patient leaving prior to being seen by health care provider (principal)

== ENCOUNTER 2022-12-18 09:55 | Inpatient (IN) | payer MEDICARE, MEDICAID ==
[~2022-12-18] VITALS: Ht 165.1 cm; Wt 144.0 kg
[~2022-12-18 09:55] MED LIST changes: +BENZ0.5T2 PO; -BENZ0.5T23 PO
[2022-12-18] MEDS ORDERED: MED REC IN PROGRESS XX SCH (11:50)
[2022-12-18] MEDS ORDERED: LORazepam 2 MG TAB PO STA (13:56)
[2022-12-18] MEDS ORDERED: OLANZapine ORAL DISINTEGRATING TAB 5MG PO ONE (14:00)
[2022-12-18] MEDS ORDERED: HOME MED LIST COMPLETE! XX SCH (15:15)
[2022-12-18] MEDS ORDERED: LORazepam 2 MG/ML 1ML VIAL IM STA (15:32)
[2022-12-18] MEDS ORDERED: OLANZapine INTRAMUSCULAR 10MG VIAL IM ONE (15:35)
[2022-12-18 16:46] LABS: HEMATOCRIT 42.5 % (36.0-47.0); HEMOGLOBIN 13.8 g/dl (12.0-15.5); MEAN CORPUSCULAR HEMOGLOBIN 29.3 pg (27.0-33.0); MEAN CORPUSCULAR HGB CONC 32.5 g/dl (32.0-36.5); MEAN CORPUSCULAR VOLUME 90.2 fl (80.0-96.0); PLATELET COUNT, AUTOMATED 251 10^3/uL (150-450); RED BLOOD COUNT 4.71 10^6/uL (4.00-5.40); WHITE BLOOD COUNT 10.3 10^3/uL (4.0-10.0)
[2022-12-18 17:08] LABS: ETHYL ALCOHOL (ETHANOL) < 0.003 % (0.000-0.010)
[2022-12-18 17:10] LABS: ACETAMINOPHEN LEVEL < 2.0 UG/ML (10.0-20.0); ALBUMIN 3.3 G/DL (3.2-5.2); ALKALINE PHOSPHATASE 81 U/L (46-116); ALT/SGPT 16 U/L (7.0-40); AST/SGOT < 8 U/L (<34); BILIRUBIN,DIRECT 0.1 MG/DL (<0.4); BILIRUBIN,TOTAL 0.3 MG/DL (0.3-1.2); BLOOD UREA NITROGEN 19 MG/DL (9-23); CALCIUM LEVEL 10.2 MG/DL (8.3-10.6); CARBON DIOXIDE LEVEL 26 MMOL/L (20-31); CHLORIDE LEVEL 107 MMOL/L (98-107); CREATININE FOR GFR 0.75 MG/DL (0.55-1.30); GLOMERULAR FILTRATION RATE > 60.0 (>45); GLUCOSE, FASTING 98 MG/DL (74-106); POTASSIUM SERUM 4.3 MMOL/L (3.5-5.1); SALICYLATE LEVEL < 3.0 MG/DL (<30); SODIUM LEVEL 139 MMOL/L (136-145); TOTAL PROTEIN 6.5 G/DL (5.7-8.2)
[2022-12-18 17:12] LABS: THYROID STIMULATING HORMONE 1.029 uIU/ML (0.55-4.78)
[2022-12-18 17:54] LABS: AMPHETAMINES LEVEL URINE NEGATIVE (NEGATIVE)
[2022-12-18 17:55] LABS: BARBITURATES URINE NEGATIVE (NEGATIVE); BENZODIAZEPINES URINE NEGATIVE (NEGATIVE); CANNABINOIDS URINE NEGATIVE (NEGATIVE); COCAINE METABOLITE URINE NEGATIVE (NEGATIVE); METHADONE URINE NEGATIVE (NEGATIVE); OPIATES URINE NEGATIVE (NEGATIVE); PHENCYCLIDINE URINE NEGATIVE (NEGATIVE)
[2022-12-18 23:11] LABS: APPEARANCE, URINE HAZY (CLEAR); BACTERIA, URINE AUTO NEGATIVE (NEGATIVE); BILIRUBIN, URINE AUTO NEGATIVE (NEGATIVE); BLOOD, URINE BLOOD NEGATIVE (NEGATIVE); CALCIUM OXALATE CRYSTALS LARGE; COLOR, URINE YELLOW (YELLOW); GLUCOSE, URINE (UA) AUTO NEGATIVE (NEGATIVE); KETONE, URINE AUTO NEGATIVE (NEGATIVE); LEUKOCYTE ESTERASE, URINE AUTO TRACE (NEGATIVE); MUCUS, URINE SMALL (NEGATIVE); NITRITE, URINE AUTO NEGATIVE (NEGATIVE); PROTEIN, URINE AUTO NEGATIVE (NEGATIVE); RBC, URINE AUTO 0 /HPF (0-3); SPECIFIC GRAVITY URINE AUTO 1.023 (1.002-1.035); SQUAMOUS EPITHELIAL CELL UR AU 4 /HPF (0-6); UROBILINOGEN, URINE AUTO 0.2 mg/dL (0.0-2.0); WBC, URINE AUTO 8 /HPF (0-3)
[2022-12-19] MEDS ORDERED: LORazepam 2 MG TAB PO STA (07:38)
[2022-12-19] MEDS ORDERED: OLANZapine ORAL DISINTEGRATING TAB 5MG PO ONE (07:40)
[2022-12-19] MEDS ORDERED: NICOTINE 21MG/24HR 1 EA TRANSDERMAL TD PRN (12:25)
[2022-12-19] MEDS ORDERED: MOM 30ML SUSPENSION UDC PO PRN (12:25)
[2022-12-19] MEDS ORDERED: MAALOX 30 ML SUSP *UDC PO PRN (12:25)
[2022-12-19] MEDS ORDERED: PALI1TAB2 PO (13:34)
[2022-12-19] MEDS ORDERED: XARE10TA PO (13:34)
[2022-12-19] MEDS ORDERED: INVE234I IM (13:34)
[2022-12-19] MEDS ORDERED: HYDR-3490 PO (13:34)
[2022-12-19] MEDS ORDERED: DEPA500T2 PO (13:34)
[2022-12-19] MEDS: RIVAROXABAN 10MG TAB (XARELTO) PO SCH (21:00)
[2022-12-19] MEDS: PALIPERIDONE 3MG ER TAB (INVEGA) PO SCH (21:50)
[2022-12-19] MEDS: BENZTROPINE 0.5 MG TAB PO SCH (21:50)
[2022-12-20] MEDS: DIVALPROEX 500MG *ER* TAB PO SCH (09:12)
[2022-12-20] MEDS: BENZTROPINE 0.5 MG TAB PO SCH ×2 (09:12→21:42)
[2022-12-20] MEDS: RIVAROXABAN 10MG TAB (XARELTO) PO SCH (21:00)
[2022-12-20] MEDS: PALIPERIDONE 3MG ER TAB (INVEGA) PO SCH (21:42)
[2022-12-21] MEDS: DIVALPROEX 500MG *ER* TAB PO SCH ×2 (09:00→09:45)
[2022-12-21] MEDS: BENZTROPINE 0.5 MG TAB PO SCH ×3 (09:00→21:41)
[2022-12-21] MEDS: PALIPERIDONE 3MG ER TAB (INVEGA) PO SCH (21:40)
[2022-12-21] MEDS: RIVAROXABAN 10MG TAB (XARELTO) PO SCH (21:41)
[2022-12-22] MEDS: BENZTROPINE 0.5 MG TAB PO SCH ×2 (09:14→21:00)
[2022-12-22] MEDS: DIVALPROEX 500MG *ER* TAB PO SCH (09:14)
[2022-12-22] MEDS: PALIPERIDONE 3MG ER TAB (INVEGA) PO SCH (21:00)
[2022-12-22] MEDS: RIVAROXABAN 10MG TAB (XARELTO) PO SCH (21:00)
[2022-12-23] MEDS: BENZTROPINE 0.5 MG TAB PO SCH ×2 (09:00→20:57)
[2022-12-23] MEDS: DIVALPROEX 500MG *ER* TAB PO SCH (09:00)
[2022-12-23] MEDS: RIVAROXABAN 10MG TAB (XARELTO) PO SCH (20:57)
[2022-12-23] MEDS: PALIPERIDONE 3MG ER TAB (INVEGA) PO SCH (20:57)
[2022-12-24] MEDS: BENZTROPINE 0.5 MG TAB PO SCH ×2 (09:00→21:00)
[2022-12-24] MEDS: DIVALPROEX 500MG *ER* TAB PO SCH (09:00)
[2022-12-24] MEDS: PALIPERIDONE 3MG ER TAB (INVEGA) PO SCH (21:00)
[2022-12-24] MEDS: RIVAROXABAN 10MG TAB (XARELTO) PO SCH (21:00)
[2022-12-25] MEDS: BENZTROPINE 0.5 MG TAB PO SCH ×2 (09:00→21:00)
[2022-12-25] MEDS: DIVALPROEX 500MG *ER* TAB PO SCH (09:00)
[2022-12-25] MEDS: PALIPERIDONE 3MG ER TAB (INVEGA) PO SCH (21:00)
[2022-12-25] MEDS: RIVAROXABAN 10MG TAB (XARELTO) PO SCH (21:00)
[2022-12-26] MEDS: DIVALPROEX 500MG *ER* TAB PO SCH (09:00)
[2022-12-26] MEDS: BENZTROPINE 0.5 MG TAB PO SCH ×2 (09:00→21:00)
[2022-12-26] MEDS: RIVAROXABAN 10MG TAB (XARELTO) PO SCH (21:00)
[2022-12-26] MEDS: PALIPERIDONE 3MG ER TAB (INVEGA) PO SCH (21:00)
[2022-12-27] MEDS: BENZTROPINE 0.5 MG TAB PO SCH ×2 (09:00→21:00)
[2022-12-27] MEDS: DIVALPROEX 500MG *ER* TAB PO SCH (09:00)
[2022-12-27] MEDS ORDERED: HALOPERIDOL 5MG/ML 1ML VIAL IM STA (19:35)
[2022-12-27] MEDS ORDERED: diphenhydrAMINE 50MG/ML VIAL IM STA (19:35)
[2022-12-27] MEDS ORDERED: LORazepam 2 MG/ML 1ML VIAL IM STA (19:35)
[2022-12-27] MEDS: PALIPERIDONE 3MG ER TAB (INVEGA) PO SCH (21:00)
[2022-12-27] MEDS: RIVAROXABAN 10MG TAB (XARELTO) PO SCH (21:00)
[2022-12-28] MEDS: BENZTROPINE 0.5 MG TAB PO SCH ×2 (09:00→21:00)
[2022-12-28] MEDS: DIVALPROEX 500MG *ER* TAB PO SCH (09:00)
[2022-12-28] MEDS: PALIPERIDONE 3MG ER TAB (INVEGA) PO SCH (21:00)
[2022-12-28] MEDS: RIVAROXABAN 10MG TAB (XARELTO) PO SCH (21:00)
[2022-12-29] MEDS ORDERED: LORazepam 2 MG/ML 1ML VIAL IM STA (01:58)
[2022-12-29] MEDS ORDERED: diphenhydrAMINE 50MG/ML VIAL IM STA (01:58)
[2022-12-29] MEDS ORDERED: HALOPERIDOL 5MG/ML 1ML VIAL IM STA (01:58)
[2022-12-29] MEDS: DIVALPROEX 500MG *ER* TAB PO SCH (09:00)
[2022-12-29] MEDS: BENZTROPINE 0.5 MG TAB PO SCH ×2 (09:00→21:00)
[2022-12-29] MEDS ORDERED: LORazepam 2 MG/ML 1ML VIAL IM ONE (16:45)
[2022-12-29] MEDS ORDERED: HALOPERIDOL 5MG/ML 1ML VIAL IM ONE (16:45)
[2022-12-29] MEDS ORDERED: diphenhydrAMINE 50MG/ML VIAL IM ONE (16:45)
[2022-12-29] MEDS: RIVAROXABAN 10MG TAB (XARELTO) PO SCH (21:00)
[2022-12-29] MEDS: PALIPERIDONE 3MG ER TAB (INVEGA) PO SCH (21:00)
[2022-12-30] MEDS: BENZTROPINE 0.5 MG TAB PO SCH ×2 (09:53→21:00)
[2022-12-30] MEDS: DIVALPROEX 500MG *ER* TAB PO SCH (09:54)
[2022-12-30] MEDS ORDERED: HALOPERIDOL 5MG/ML 1ML VIAL IM ONE (14:55)
[2022-12-30] MEDS ORDERED: LORazepam 2 MG/ML 1ML VIAL IM ONE (14:55)
[2022-12-30] MEDS ORDERED: diphenhydrAMINE 50MG/ML VIAL IM ONE (14:55)
[2022-12-30] MEDS: RIVAROXABAN 10MG TAB (XARELTO) PO SCH (21:00)
[2022-12-30] MEDS: PALIPERIDONE 3MG ER TAB (INVEGA) PO SCH (21:00)
[2022-12-31] MEDS: BENZTROPINE 0.5 MG TAB PO SCH ×2 (09:00→20:40)
[2022-12-31] MEDS: DIVALPROEX 500MG *ER* TAB PO SCH ×2 (09:00→10:53)
[2022-12-31] MEDS ORDERED: LORazepam 2 MG/ML 1ML VIAL IM STA (09:57)
[2022-12-31] MEDS ORDERED: diphenhydrAMINE 50MG/ML VIAL IM STA (09:57)
[2022-12-31] MEDS ORDERED: HALOPERIDOL 5MG/ML 1ML VIAL IM STA (09:57)
[2022-12-31] MEDS: OLANZapine ORAL DISINTEGRATING TAB 5MG PO PRN (10:41)
[2022-12-31] MEDS: diphenhydrAMINE 25MG CAP PO PRN (10:41)
[2022-12-31] MEDS: ACETAMINOPHEN TAB 650MG DOSE (2X325MG) PO PRN (10:48)
[2022-12-31] MEDS: BACTRIM 160MG/800MG DS TAB PO SCH ×2 (14:44→20:40)
[2022-12-31] MEDS ORDERED: NICOTINE POLACRILEX 2 MG GUM PO PRN ×2 (18:00→18:10)
[2022-12-31] MEDS: RIVAROXABAN 10MG TAB (XARELTO) PO SCH (20:39)
[2022-12-31] MEDS: PALIPERIDONE 3MG ER TAB (INVEGA) PO SCH (20:40)
[2023-01-01] MEDS: BACTRIM 160MG/800MG DS TAB PO SCH ×2 (10:32→20:32)
[2023-01-01] MEDS: BENZTROPINE 0.5 MG TAB PO SCH ×2 (10:34→20:32)
[2023-01-01] MEDS: DIVALPROEX 500MG *ER* TAB PO SCH (10:35)
[2023-01-01] MEDS: diphenhydrAMINE 25MG CAP PO PRN (10:36)
[2023-01-01] MEDS: OLANZapine ORAL DISINTEGRATING TAB 5MG PO PRN (10:37)
[2023-01-01] MEDS: PALIPERIDONE 3MG ER TAB (INVEGA) PO SCH (20:32)
[2023-01-01] MEDS: traZODone 50 MG TAB PO PRN (20:32)
[2023-01-01] MEDS: RIVAROXABAN 10MG TAB (XARELTO) PO SCH (20:33)
[2023-01-02 05:37] VITALS: BP 111/52; TEMP 98.4; O2SAT 95
[2023-01-02] MEDS: BACTRIM 160MG/800MG DS TAB PO SCH ×2 (09:57→20:58)
[2023-01-02] MEDS: DIVALPROEX 500MG *ER* TAB PO SCH (09:58)
[2023-01-02] MEDS: BENZTROPINE 0.5 MG TAB PO SCH ×2 (09:58→20:58)
[2023-01-02] MEDS: diphenhydrAMINE 25MG CAP PO PRN (09:59)
[2023-01-02] MEDS: ACETAMINOPHEN TAB 650MG DOSE (2X325MG) PO PRN (10:22)
[2023-01-02] MEDS: RIVAROXABAN 10MG TAB (XARELTO) PO SCH (20:58)
[2023-01-02] MEDS: PALIPERIDONE 3MG ER TAB (INVEGA) PO SCH (20:58)
[2023-01-02] MEDS: traZODone 50 MG TAB PO PRN (20:58)
[2023-01-03] MEDS: BENZTROPINE 0.5 MG TAB PO SCH ×2 (09:02→21:00)
[2023-01-03] MEDS: DIVALPROEX 500MG *ER* TAB PO SCH (09:02)
[2023-01-03] MEDS: BACTRIM 160MG/800MG DS TAB PO SCH ×2 (09:02→21:00)
[2023-01-03] MEDS: RIVAROXABAN 10MG TAB (XARELTO) PO SCH (21:00)
[2023-01-03] MEDS: PALIPERIDONE 3MG ER TAB (INVEGA) PO SCH (21:00)
[2023-01-04] MEDS: BENZTROPINE 0.5 MG TAB PO SCH ×2 (09:20→21:00)
[2023-01-04] MEDS: DIVALPROEX 500MG *ER* TAB PO SCH (09:20)
[2023-01-04] MEDS: BACTRIM 160MG/800MG DS TAB PO SCH ×2 (09:20→21:00)
[2023-01-04] MEDS: RIVAROXABAN 10MG TAB (XARELTO) PO SCH (21:00)
[2023-01-04] MEDS: PALIPERIDONE 3MG ER TAB (INVEGA) PO SCH (21:00)
[2023-01-05] MEDS: BENZTROPINE 0.5 MG TAB PO SCH ×2 (09:17→21:00)
[2023-01-05] MEDS: DIVALPROEX 500MG *ER* TAB PO SCH (09:17)
[2023-01-05] MEDS ORDERED: diphenhydrAMINE 50MG/ML VIAL IM ONE (13:20)
[2023-01-05] MEDS ORDERED: LORazepam 2 MG/ML 1ML VIAL IM ONE (13:20)
[2023-01-05] MEDS ORDERED: HALOPERIDOL 5MG/ML 1ML VIAL IM ONE (13:45)
[2023-01-05 16:20] VITALS: BP 130/75; TEMP 98.7; O2SAT 95
[2023-01-05] MEDS: PALIPERIDONE 3MG ER TAB (INVEGA) PO SCH (21:00)
[2023-01-05] MEDS: RIVAROXABAN 10MG TAB (XARELTO) PO SCH (21:00)
[2023-01-06] MEDS: DIVALPROEX 500MG *ER* TAB PO SCH (09:58)
[2023-01-06] MEDS: BENZTROPINE 0.5 MG TAB PO SCH ×2 (09:58→21:00)
[2023-01-06] MEDS: PALIPERIDONE 3MG ER TAB (INVEGA) PO SCH (21:00)
[2023-01-06] MEDS: RIVAROXABAN 10MG TAB (XARELTO) PO SCH (21:00)
[2023-01-07] MEDS: BENZTROPINE 0.5 MG TAB PO SCH ×2 (08:17→19:18)
[2023-01-07] MEDS: DIVALPROEX 500MG *ER* TAB PO SCH (08:17)
[2023-01-07] MEDS: traZODone 50 MG TAB PO PRN (19:18)
[2023-01-07] MEDS: PALIPERIDONE 3MG ER TAB (INVEGA) PO SCH (19:18)
[2023-01-07] MEDS: RIVAROXABAN 10MG TAB (XARELTO) PO SCH (19:18)
[2023-01-08] MEDS: BENZTROPINE 0.5 MG TAB PO SCH ×2 (09:27→19:26)
[2023-01-08] MEDS: DIVALPROEX 500MG *ER* TAB PO SCH (09:27)
[2023-01-08] MEDS: PALIPERIDONE 3MG ER TAB (INVEGA) PO SCH (19:26)
[2023-01-08] MEDS: traZODone 50 MG TAB PO PRN (19:26)
[2023-01-08] MEDS: RIVAROXABAN 10MG TAB (XARELTO) PO SCH (19:26)
[2023-01-09] MEDS: BENZTROPINE 0.5 MG TAB PO SCH ×2 (08:47→20:45)
[2023-01-09] MEDS: DIVALPROEX 500MG *ER* TAB PO SCH (08:47)
[2023-01-09] MEDS: RIVAROXABAN 10MG TAB (XARELTO) PO SCH (20:45)
[2023-01-09] MEDS: PALIPERIDONE 3MG ER TAB (INVEGA) PO SCH (20:45)
[2023-01-10] MEDS: DIVALPROEX 500MG *ER* TAB PO SCH (09:54)
[2023-01-10] MEDS: BENZTROPINE 0.5 MG TAB PO SCH ×2 (09:54→20:36)
[2023-01-10] MEDS: RIVAROXABAN 10MG TAB (XARELTO) PO SCH (20:36)
[2023-01-10] MEDS: traZODone 50 MG TAB PO PRN (20:36)
[2023-01-10] MEDS: PALIPERIDONE 3MG ER TAB (INVEGA) PO SCH (20:36)
[2023-01-11 06:09] VITALS: BP 126/70; TEMP 97.8; O2SAT 94
[2023-01-11] MEDS: BENZTROPINE 0.5 MG TAB PO SCH ×2 (09:12→20:34)
[2023-01-11] MEDS: DIVALPROEX 500MG *ER* TAB PO SCH (09:12)
[2023-01-11 18:45] VITALS: BP 134/88; TEMP 99.3; O2SAT 96
[2023-01-11] MEDS: traZODone 50 MG TAB PO PRN (20:33)
[2023-01-11] MEDS: PALIPERIDONE 3MG ER TAB (INVEGA) PO SCH (20:33)
[2023-01-11] MEDS: RIVAROXABAN 10MG TAB (XARELTO) PO SCH (20:34)
[2023-01-12] MEDS: DIVALPROEX 500MG *ER* TAB PO SCH (09:43)
[2023-01-12] MEDS: BENZTROPINE 0.5 MG TAB PO SCH ×2 (09:44→21:01)
[2023-01-12] MEDS ORDERED: BENZ0.5T2 PO (11:27)
[2023-01-12] MEDS ORDERED: NICO21PAT TD (11:27)
[2023-01-12] MEDS ORDERED: HYDR-3490 PO (11:27)
[2023-01-12] MEDS ORDERED: PALI1TAB2 PO (11:27)
[2023-01-12] MEDS ORDERED: DEPA500T2 PO (11:27)
[2023-01-12 16:11] VITALS: BP 133/91; TEMP 98.8
[2023-01-12] MEDS: PALIPERIDONE 3MG ER TAB (INVEGA) PO SCH (21:01)
[2023-01-12] MEDS: RIVAROXABAN 10MG TAB (XARELTO) PO SCH (21:01)
[2023-01-13] MEDS: DIVALPROEX 500MG *ER* TAB PO SCH (08:51)
[2023-01-13] MEDS: BENZTROPINE 0.5 MG TAB PO SCH (08:51)
[2023-01-13] MEDS ORDERED: PALIPERIDONE PAL 234MG/1.5ML INJ (INVEGA)(FREE PSY INPT ONLY) IM ONE ×2 (10:00→12:00)
[2023-01-13] MEDS ORDERED: INVE234I IM (10:03)
[2023-01-14] MEDS ORDERED: ACET325C5 PO (11:47)
== END 2023-01-13 10:48 | disposition home or self-care (01) | DRG 885 ==
LOC: M ED 09:55 → M ED INP 12-19 12:24 → M PSY 12-19 14:50
PROVIDERS: ADMIT Psychiatry & Neurology Psychiatry; ATTEND Student in an Organized Health Care Education/Training Program
DX: F25.0 Schizoaffective disorder, bipolar type (principal); F17.200 Nicotine dependence, unspecified, uncomplicated; E66.01 Morbid (severe) obesity due to excess calories; F79 Unspecified intellectual disabilities; F60.89 Other specific personality disorders; Z88.8 Allergy status to other drugs, medicaments and biological substances; Z79.899 Other long term (current) drug therapy; Z86.718 Personal history of other venous thrombosis and embolism; I10 Essential (primary) hypertension; Z91.119 Patient's noncompliance with dietary regimen due to unspecified reason; Z91.128 Patient's intentional underdosing of medication regimen for other reason

== ENCOUNTER 2023-02-27 21:59 | Inpatient (IN) | payer MEDICARE, MEDICAID ==
[~2023-02-27] VITALS: Ht 165.1 cm; Wt 136.0 kg
[~2023-02-27 21:59] MED LIST changes: +ACET325C5 PO; +NICO21PAT TD
[2023-02-27 22:36] LABS: HEMATOCRIT 41.4 % (36.0-47.0); HEMOGLOBIN 13.3 g/dl (12.0-15.5); MEAN CORPUSCULAR HEMOGLOBIN 29.7 pg (27.0-33.0); MEAN CORPUSCULAR HGB CONC 32.1 g/dl (32.0-36.5); MEAN CORPUSCULAR VOLUME 92.4 fl (80.0-96.0); PLATELET COUNT, AUTOMATED 261 10^3/uL (150-450); RED BLOOD COUNT 4.48 10^6/uL (4.00-5.40); WHITE BLOOD COUNT 11.6 10^3/uL (4.0-10.0)
[2023-02-27] MEDS ORDERED: PALI1TAB2 PO (22:43)
[2023-02-27] MEDS ORDERED: DIVA500T9 PO (22:43)
[2023-02-27] MEDS ORDERED: HYDR-3490 PO (22:43)
[2023-02-27] MEDS ORDERED: XARE10TA PO (22:43)
[2023-02-27] MEDS ORDERED: INVE234I IM (22:43)
[2023-02-27] MEDS ORDERED: BENZ0.5T2 PO (22:43)
[2023-02-27] MEDS ORDERED: HOME MED LIST COMPLETE! XX SCH (22:45)
[2023-02-27] MEDS ORDERED: med rec comment (22:46)
[2023-02-27 23:07] LABS: ETHYL ALCOHOL (ETHANOL) < 0.003 % (0.000-0.010)
[2023-02-27 23:08] LABS: SALICYLATE LEVEL < 3.0 MG/DL (<30)
[2023-02-27 23:16] LABS: VALPROIC ACID (DEPAKOTE) < 3.0 UG/ML (50.0-100.0)
[2023-02-27 23:41] LABS: ALBUMIN 3.3 G/DL (3.2-5.2); ALKALINE PHOSPHATASE 72 U/L (46-116); ALT/SGPT 13 U/L (7.0-40); AST/SGOT < 8 U/L (<34); BILIRUBIN,DIRECT < 0.1 MG/DL (<0.4); BILIRUBIN,TOTAL 0.2 MG/DL (0.3-1.2); BLOOD UREA NITROGEN 24 MG/DL (9-23); CALCIUM LEVEL 9.7 MG/DL (8.3-10.6); CARBON DIOXIDE LEVEL 29 MMOL/L (20-31); CHLORIDE LEVEL 104 MMOL/L (98-107); CREATININE FOR GFR 0.82 MG/DL (0.55-1.30); GLOMERULAR FILTRATION RATE > 60.0 (>45); GLUCOSE, FASTING 111 MG/DL (74-106); POTASSIUM SERUM 4.5 MMOL/L (3.5-5.1); SODIUM LEVEL 138 MMOL/L (136-145); THYROID STIMULATING HORMONE 2.283 uIU/ML (0.55-4.78); TOTAL PROTEIN 6.4 G/DL (5.7-8.2)
[2023-02-28 01:32] LABS: AMPHETAMINES LEVEL URINE NEGATIVE (NEGATIVE); BARBITURATES URINE NEGATIVE (NEGATIVE); BENZODIAZEPINES URINE NEGATIVE (NEGATIVE); CANNABINOIDS URINE NEGATIVE (NEGATIVE); COCAINE METABOLITE URINE NEGATIVE (NEGATIVE); METHADONE URINE NEGATIVE (NEGATIVE); OPIATES URINE NEGATIVE (NEGATIVE); PHENCYCLIDINE URINE NEGATIVE (NEGATIVE)
[2023-02-28] MEDS ORDERED: MOM 30ML SUSPENSION UDC PO PRN (10:10)
[2023-02-28] MEDS ORDERED: MAALOX 30 ML SUSP *UDC PO PRN (10:10)
[2023-02-28] MEDS ORDERED: IBUPROFEN 400MG TAB PO PRN (10:10)
[2023-02-28] MEDS ORDERED: traZODone 50 MG TAB PO PRN (10:10)
[2023-02-28] MEDS ORDERED: ACETAMINOPHEN TAB 650MG DOSE (2X325MG) PO PRN (10:10)
[2023-02-28] MEDS ORDERED: diphenhydrAMINE 25MG CAP PO PRN (10:10)
[2023-02-28] MEDS: DIVALPROEX 500MG *ER* TAB PO SCH (10:11)
[2023-02-28] MEDS: BENZTROPINE 0.5 MG TAB PO SCH ×2 (10:11→20:38)
[2023-02-28] MEDS ORDERED: RIVAROXABAN 10MG TAB (XARELTO) PO SCH (18:00)
[2023-02-28] MEDS ORDERED: PALIPERIDONE 3MG ER TAB (INVEGA) PO SCH (21:00)
[2023-03-01] MEDS: NICOTINE 7 MG/24 HR TRANSDERMAL TD SCH (09:00)
[2023-03-01] MEDS: BENZTROPINE 0.5 MG TAB PO SCH ×2 (09:06→21:00)
[2023-03-01] MEDS: DIVALPROEX 500MG *ER* TAB PO SCH (09:06)
[2023-03-01] MEDS ORDERED: PALIPERIDONE PAL 234MG/1.5ML INJ (INVEGA)(FREE PSY INPT ONLY) IM ONE (12:00)
[2023-03-01] MEDS: NYSTATIN 100,000 UNITS/GM TOPICAL PWD 15GM TOP SCH ×2 (12:18→21:00)
[2023-03-01 16:21] VITALS: BP 123/65; TEMP 98.9; O2SAT 98
[2023-03-01] MEDS: PALIPERIDONE 3MG ER TAB (INVEGA) PO SCH (21:00)
[2023-03-02] MEDS ORDERED: **PENDING PPD ENTRY XX SCH (09:00)
[2023-03-02] MEDS: NICOTINE 7 MG/24 HR TRANSDERMAL TD SCH (09:30)
[2023-03-02] MEDS: NYSTATIN 100,000 UNITS/GM TOPICAL PWD 15GM TOP SCH ×2 (09:31→21:35)
[2023-03-02] MEDS: BENZTROPINE 0.5 MG TAB PO SCH ×2 (09:31→21:35)
[2023-03-02] MEDS: DIVALPROEX 500MG *ER* TAB PO SCH (09:31)
[2023-03-02] MEDS ORDERED: TUBERCULIN PPD 5 UNITS/0.1 ML ID ONE (12:00)
[2023-03-02] MEDS: RIVAROXABAN 10MG TAB (XARELTO) PO SCH (18:03)
[2023-03-02] MEDS: PALIPERIDONE 3MG ER TAB (INVEGA) PO SCH (21:35)
[2023-03-03 06:52] VITALS: BP 147/75; TEMP 97.9; O2SAT 95
[2023-03-03] MEDS: NICOTINE 7 MG/24 HR TRANSDERMAL TD SCH ×2 (09:00→12:35)
[2023-03-03] MEDS: BENZTROPINE 0.5 MG TAB PO SCH ×3 (09:47→22:45)
[2023-03-03] MEDS: DIVALPROEX 500MG *ER* TAB PO SCH (09:47)
[2023-03-03] MEDS: NYSTATIN 100,000 UNITS/GM TOPICAL PWD 15GM TOP SCH ×3 (09:48→22:45)
[2023-03-03] MEDS: RIVAROXABAN 10MG TAB (XARELTO) PO SCH (17:12)
[2023-03-03 18:27] VITALS: BP 132/62; TEMP 97.2; O2SAT 96
[2023-03-03] MEDS: PALIPERIDONE 3MG ER TAB (INVEGA) PO SCH ×2 (21:00→22:45)
[2023-03-04] MEDS: NYSTATIN 100,000 UNITS/GM TOPICAL PWD 15GM TOP SCH ×3 (09:00→21:09)
[2023-03-04] MEDS: NICOTINE 7 MG/24 HR TRANSDERMAL TD SCH (09:43)
[2023-03-04] MEDS: BENZTROPINE 0.5 MG TAB PO SCH ×3 (09:44→21:09)
[2023-03-04] MEDS: DIVALPROEX 500MG *ER* TAB PO SCH (09:47)
[2023-03-04] MEDS ORDERED: TUBERCULIN PPD 5 UNITS/0.1 ML ID ONE (10:00)
[2023-03-04] MEDS ORDERED: PPD DOCUMENTATION ENTRY MISC XX SCH (10:00)
[2023-03-04] MEDS ORDERED: PPD DOCUMENTATION ENTRY MISC XX ONE (12:00)
[2023-03-04 17:41] VITALS: BP 127/58; TEMP 97.4; O2SAT 100
[2023-03-04] MEDS: RIVAROXABAN 10MG TAB (XARELTO) PO SCH (18:36)
[2023-03-04] MEDS: PALIPERIDONE 3MG ER TAB (INVEGA) PO SCH ×2 (20:51→21:09)
[2023-03-05] MEDS: DIVALPROEX 500MG *ER* TAB PO SCH (11:42)
[2023-03-05] MEDS: BENZTROPINE 0.5 MG TAB PO SCH ×2 (11:42→21:00)
[2023-03-05] MEDS: NYSTATIN 100,000 UNITS/GM TOPICAL PWD 15GM TOP SCH ×2 (11:43→21:00)
[2023-03-05] MEDS: NICOTINE 7 MG/24 HR TRANSDERMAL TD SCH (11:43)
[2023-03-05 18:15] VITALS: BP 144/63; TEMP 98.4; O2SAT 96
[2023-03-05] MEDS: RIVAROXABAN 10MG TAB (XARELTO) PO SCH (18:30)
[2023-03-05] MEDS: PALIPERIDONE 3MG ER TAB (INVEGA) PO SCH (21:00)
[2023-03-06 08:31] VITALS: BP 144/63; TEMP 98.4; O2SAT 96
[2023-03-06] MEDS: NYSTATIN 100,000 UNITS/GM TOPICAL PWD 15GM TOP SCH ×3 (09:00→21:00)
[2023-03-06] MEDS: DIVALPROEX 500MG *ER* TAB PO SCH ×2 (09:00→09:50)
[2023-03-06] MEDS: BENZTROPINE 0.5 MG TAB PO SCH ×2 (09:49→21:00)
[2023-03-06] MEDS: NICOTINE 7 MG/24 HR TRANSDERMAL TD SCH (09:50)
[2023-03-06] MEDS: RIVAROXABAN 10MG TAB (XARELTO) PO SCH (17:41)
[2023-03-06 18:29] VITALS: BP 189/78; TEMP 97; O2SAT 96
[2023-03-06] MEDS: PALIPERIDONE 3MG ER TAB (INVEGA) PO SCH (21:00)
[2023-03-07] MEDS: NICOTINE 7 MG/24 HR TRANSDERMAL TD SCH ×2 (09:38→09:45)
[2023-03-07] MEDS: BENZTROPINE 0.5 MG TAB PO SCH ×2 (09:38→20:29)
[2023-03-07] MEDS: NYSTATIN 100,000 UNITS/GM TOPICAL PWD 15GM TOP SCH ×2 (09:39→20:29)
[2023-03-07] MEDS: DIVALPROEX 500MG *ER* TAB PO SCH (10:37)
[2023-03-07] MEDS: RIVAROXABAN 10MG TAB (XARELTO) PO SCH (17:57)
[2023-03-07] MEDS: PALIPERIDONE 3MG ER TAB (INVEGA) PO SCH (20:29)
[2023-03-08] MEDS: BENZTROPINE 0.5 MG TAB PO SCH ×2 (10:00→21:00)
[2023-03-08] MEDS: DIVALPROEX 500MG *ER* TAB PO SCH (10:01)
[2023-03-08] MEDS: NYSTATIN 100,000 UNITS/GM TOPICAL PWD 15GM TOP SCH ×2 (10:05→21:00)
[2023-03-08] MEDS: NICOTINE 7 MG/24 HR TRANSDERMAL TD SCH (12:14)
[2023-03-08 14:49] VITALS: BP 133/79; TEMP 97.9; O2SAT 95
[2023-03-08] MEDS: RIVAROXABAN 10MG TAB (XARELTO) PO SCH (17:01)
[2023-03-08] MEDS: PALIPERIDONE 3MG ER TAB (INVEGA) PO SCH (21:00)
[2023-03-09] MEDS: NYSTATIN 100,000 UNITS/GM TOPICAL PWD 15GM TOP SCH ×2 (09:00→21:00)
[2023-03-09] MEDS: NICOTINE 7 MG/24 HR TRANSDERMAL TD SCH (09:00)
[2023-03-09] MEDS: BENZTROPINE 0.5 MG TAB PO SCH ×2 (09:42→21:00)
[2023-03-09] MEDS: DIVALPROEX 500MG *ER* TAB PO SCH (09:42)
[2023-03-09] MEDS: RIVAROXABAN 10MG TAB (XARELTO) PO SCH (18:00)
[2023-03-09] MEDS: PALIPERIDONE 3MG ER TAB (INVEGA) PO SCH (21:00)
[2023-03-10 06:41] VITALS: BP 146/70; TEMP 98.9; O2SAT 95
[2023-03-10] MEDS: NYSTATIN 100,000 UNITS/GM TOPICAL PWD 15GM TOP SCH ×2 (09:00→21:00)
[2023-03-10] MEDS: BENZTROPINE 0.5 MG TAB PO SCH ×2 (11:19→21:00)
[2023-03-10] MEDS: DIVALPROEX 500MG *ER* TAB PO SCH (11:34)
[2023-03-10] MEDS: NICOTINE 7 MG/24 HR TRANSDERMAL TD SCH (13:17)
[2023-03-10 17:09] VITALS: BP 167/77; TEMP 98; O2SAT 96
[2023-03-10] MEDS: RIVAROXABAN 10MG TAB (XARELTO) PO SCH (18:24)
[2023-03-10] MEDS: PALIPERIDONE 3MG ER TAB (INVEGA) PO SCH (18:24)
[2023-03-11] MEDS: BENZTROPINE 0.5 MG TAB PO SCH ×2 (08:52→21:00)
[2023-03-11] MEDS: DIVALPROEX 500MG *ER* TAB PO SCH (08:52)
[2023-03-11] MEDS: NYSTATIN 100,000 UNITS/GM TOPICAL PWD 15GM TOP SCH ×2 (08:54→21:00)
[2023-03-11] MEDS: NICOTINE 7 MG/24 HR TRANSDERMAL TD SCH (08:55)
[2023-03-11] MEDS: RIVAROXABAN 10MG TAB (XARELTO) PO SCH (18:05)
[2023-03-11] MEDS: PALIPERIDONE 3MG ER TAB (INVEGA) PO SCH (18:05)
[2023-03-12] MEDS: NICOTINE 7 MG/24 HR TRANSDERMAL TD SCH (09:08)
[2023-03-12] MEDS: BENZTROPINE 0.5 MG TAB PO SCH ×2 (09:08→21:07)
[2023-03-12] MEDS: DIVALPROEX 500MG *ER* TAB PO SCH (09:08)
[2023-03-12] MEDS: NYSTATIN 100,000 UNITS/GM TOPICAL PWD 15GM TOP SCH ×2 (09:10→21:07)
[2023-03-12] MEDS: RIVAROXABAN 10MG TAB (XARELTO) PO SCH (17:23)
[2023-03-12] MEDS: PALIPERIDONE 3MG ER TAB (INVEGA) PO SCH (17:24)
[2023-03-12 19:27] VITALS: BP 125/74; TEMP 97.8; O2SAT 97
[2023-03-13] MEDS: BENZTROPINE 0.5 MG TAB PO SCH ×2 (08:51→21:16)
[2023-03-13] MEDS: NICOTINE 7 MG/24 HR TRANSDERMAL TD SCH (08:52)
[2023-03-13] MEDS: DIVALPROEX 500MG *ER* TAB PO SCH (08:52)
[2023-03-13] MEDS: NYSTATIN 100,000 UNITS/GM TOPICAL PWD 15GM TOP SCH ×2 (08:53→21:20)
[2023-03-13] MEDS: RIVAROXABAN 10MG TAB (XARELTO) PO SCH (17:39)
[2023-03-13] MEDS: PALIPERIDONE 3MG ER TAB (INVEGA) PO SCH (17:40)
[2023-03-13 18:28] VITALS: BP 135/81; TEMP 97.8; O2SAT 97
[2023-03-14] MEDS: BENZTROPINE 0.5 MG TAB PO SCH (09:18)
[2023-03-14] MEDS: NYSTATIN 100,000 UNITS/GM TOPICAL PWD 15GM TOP SCH (09:18)
[2023-03-14] MEDS: NICOTINE 7 MG/24 HR TRANSDERMAL TD SCH (09:18)
[2023-03-14] MEDS: DIVALPROEX 500MG *ER* TAB PO SCH (09:18)
[2023-03-14] MEDS ORDERED: PALI1TAB4 PO (10:59)
[2023-03-14] MEDS ORDERED: INVE234I IM (10:59)
[2023-03-14] MEDS ORDERED: BENZ0.5T2 PO (10:59)
[2023-03-14] MEDS ORDERED: DIVA500T9 PO (10:59)
[2023-03-14] MEDS ORDERED: XARE10TA PO (11:00)
[2023-03-14] MEDS ORDERED: HYDR-3490 PO (11:00)
== END 2023-03-14 13:30 | disposition home or self-care (01) | DRG 885 ==
LOC: M ED 21:59 → M ED INP 02-28 10:07 → M PSY 02-28 15:48
PROVIDERS: ADMIT Student in an Organized Health Care Education/Training Program; ATTEND Student in an Organized Health Care Education/Training Program
DX: F25.0 Schizoaffective disorder, bipolar type (principal); F60.89 Other specific personality disorders; F84.9 Pervasive developmental disorder, unspecified; Z91.128 Patient's intentional underdosing of medication regimen for other reason; I10 Essential (primary) hypertension; Z79.01 Long term (current) use of anticoagulants; Z86.718 Personal history of other venous thrombosis and embolism; Z79.899 Other long term (current) drug therapy; Z88.8 Allergy status to other drugs, medicaments and biological substances; E66.01 Morbid (severe) obesity due to excess calories; F17.210 Nicotine dependence, cigarettes, uncomplicated; L30.4 Erythema intertrigo

== ENCOUNTER 2023-03-19 04:04 | Inpatient (IN) | payer MEDICARE, MEDICAID ==
[~2023-03-19] VITALS: Ht 165.1 cm; Wt 136.0 kg
[~2023-03-19 04:04] MED LIST changes: +PALI1TAB4 PO
[2023-03-19 04:40] LABS: HEMATOCRIT 40.7 % (36.0-47.0); HEMOGLOBIN 13.1 g/dl (12.0-15.5); MEAN CORPUSCULAR HEMOGLOBIN 29.3 pg (27.0-33.0); MEAN CORPUSCULAR HGB CONC 32.2 g/dl (32.0-36.5); MEAN CORPUSCULAR VOLUME 91.1 fl (80.0-96.0); PLATELET COUNT, AUTOMATED 247 10^3/uL (150-450); RED BLOOD COUNT 4.47 10^6/uL (4.00-5.40); WHITE BLOOD COUNT 9.3 10^3/uL (4.0-10.0)
[2023-03-19 05:15] LABS: ETHYL ALCOHOL (ETHANOL) 0.005 % (0.000-0.010)
[2023-03-19 05:16] LABS: SALICYLATE LEVEL < 3.0 MG/DL (<30)
[2023-03-19 05:17] LABS: ALKALINE PHOSPHATASE 64 U/L (46-116); ALT/SGPT 17 U/L (7.0-40); AST/SGOT 9 U/L (<34); BILIRUBIN,DIRECT < 0.1 MG/DL (<0.4); BILIRUBIN,TOTAL 0.3 MG/DL (0.3-1.2); TOTAL PROTEIN 6.1 G/DL (5.7-8.2)
[2023-03-19 05:19] LABS: THYROID STIMULATING HORMONE 2.303 uIU/ML (0.55-4.78)
[2023-03-19 07:00] LABS: BLOOD UREA NITROGEN 12 MG/DL (9-23); CALCIUM LEVEL 9.1 MG/DL (8.3-10.6); CARBON DIOXIDE LEVEL 27 MMOL/L (20-31); CHLORIDE LEVEL 103 MMOL/L (98-107); CREATININE FOR GFR 0.64 MG/DL (0.55-1.30); GLOMERULAR FILTRATION RATE > 60.0 (>45); GLUCOSE, FASTING 120 MG/DL (74-106); POTASSIUM SERUM 4.3 MMOL/L (3.5-5.1); SODIUM LEVEL 140 MMOL/L (136-145)
[2023-03-19] MEDS ORDERED: diphenhydrAMINE 25MG CAP PO PRN (10:05)
[2023-03-19] MEDS ORDERED: MAALOX 30 ML SUSP *UDC PO PRN (10:05)
[2023-03-19] MEDS ORDERED: LORazepam 1 MG TAB PO PRN (10:05)
[2023-03-19] MEDS ORDERED: MOM 30ML SUSPENSION UDC PO PRN (10:05)
[2023-03-19] MEDS ORDERED: IBUPROFEN 400MG TAB PO PRN (10:05)
[2023-03-19] MEDS ORDERED: ACETAMINOPHEN TAB 650MG DOSE (2X325MG) PO PRN (10:05)
[2023-03-19] MEDS ORDERED: traZODone 50 MG TAB PO PRN (10:05)
[2023-03-19] MEDS ORDERED: MED REC IN PROGRESS XX SCH ×2 (10:35→12:00)
[2023-03-19] MEDS ORDERED: MED REC CURRENTLY UNOBTAINABLE XX SCH (12:05)
[2023-03-19] MEDS: NICOTINE 14 MG/24 HR TRANSDERMAL TD SCH (17:16)
[2023-03-19] MEDS: DIVALPROEX 500MG *ER* TAB PO SCH (17:24)
[2023-03-19 17:43] VITALS: BP 141/66; TEMP 99; O2SAT 100
[2023-03-19] MEDS: BENZTROPINE 0.5 MG TAB PO SCH (21:00)
[2023-03-19] MEDS: PALIPERIDONE 3MG ER TAB (INVEGA) PO SCH (21:00)
[2023-03-19] MEDS: RIVAROXABAN 10MG TAB (XARELTO) PO SCH (21:00)
[2023-03-20 06:44] VITALS: BP 119/67; TEMP 98.5; O2SAT 95
[2023-03-20 06:56] LABS: HEMATOCRIT 38.3 % (36.0-47.0); HEMOGLOBIN 12.5 g/dl (12.0-15.5); MEAN CORPUSCULAR HEMOGLOBIN 29.8 pg (27.0-33.0); MEAN CORPUSCULAR HGB CONC 32.6 g/dl (32.0-36.5); MEAN CORPUSCULAR VOLUME 91.4 fl (80.0-96.0); PLATELET COUNT, AUTOMATED 241 10^3/uL (150-450); RED BLOOD COUNT 4.19 10^6/uL (4.00-5.40); WHITE BLOOD COUNT 10.6 10^3/uL (4.0-10.0)
[2023-03-20 07:26] LABS: ETHYL ALCOHOL (ETHANOL) < 0.003 % (0.000-0.010)
[2023-03-20 07:28] LABS: ALBUMIN 2.9 G/DL (3.2-5.2); ALKALINE PHOSPHATASE 59 U/L (46-116); ALT/SGPT 12 U/L (7.0-40); AST/SGOT < 8 U/L (<34); BILIRUBIN,DIRECT < 0.1 MG/DL (<0.4); BILIRUBIN,TOTAL 0.3 MG/DL (0.3-1.2); BLOOD UREA NITROGEN 11 MG/DL (9-23); CALCIUM LEVEL 9.6 MG/DL (8.3-10.6); CARBON DIOXIDE LEVEL 29 MMOL/L (20-31); CHLORIDE LEVEL 103 MMOL/L (98-107); CREATININE FOR GFR 0.68 MG/DL (0.55-1.30); GLOMERULAR FILTRATION RATE > 60.0 (>45); GLUCOSE, FASTING 110 MG/DL (74-106); POTASSIUM SERUM 4.4 MMOL/L (3.5-5.1); SALICYLATE LEVEL < 3.0 MG/DL (<30); SODIUM LEVEL 139 MMOL/L (136-145); TOTAL PROTEIN 5.9 G/DL (5.7-8.2)
[2023-03-20 07:30] LABS: THYROID STIMULATING HORMONE 2.128 uIU/ML (0.55-4.78)
[2023-03-20] MEDS: NICOTINE 14 MG/24 HR TRANSDERMAL TD SCH (09:00)
[2023-03-20] MEDS: BENZTROPINE 0.5 MG TAB PO SCH ×2 (09:00→21:00)
[2023-03-20] MEDS: DIVALPROEX 500MG *ER* TAB PO SCH (09:00)
[2023-03-20] MEDS: RIVAROXABAN 10MG TAB (XARELTO) PO SCH (21:00)
[2023-03-20] MEDS: PALIPERIDONE 3MG ER TAB (INVEGA) PO SCH (21:00)
[2023-03-21] MEDS: BENZTROPINE 0.5 MG TAB PO SCH ×2 (08:55→17:07)
[2023-03-21] MEDS: DIVALPROEX 500MG *ER* TAB PO SCH (08:56)
[2023-03-21] MEDS: NICOTINE 14 MG/24 HR TRANSDERMAL TD SCH (09:00)
[2023-03-21 16:18] VITALS: BP 159/77; TEMP 98.5
[2023-03-21] MEDS: PALIPERIDONE 3MG ER TAB (INVEGA) PO SCH (17:07)
[2023-03-21] MEDS: RIVAROXABAN 10MG TAB (XARELTO) PO SCH (17:07)
[2023-03-22] MEDS: NICOTINE 14 MG/24 HR TRANSDERMAL TD SCH (09:00)
[2023-03-22] MEDS: DIVALPROEX 500MG *ER* TAB PO SCH (09:38)
[2023-03-22] MEDS: BENZTROPINE 0.5 MG TAB PO SCH ×2 (09:38→18:21)
[2023-03-22] MEDS: RIVAROXABAN 10MG TAB (XARELTO) PO SCH (18:21)
[2023-03-22] MEDS: PALIPERIDONE 3MG ER TAB (INVEGA) PO SCH (18:22)
[2023-03-23] MEDS: NICOTINE 14 MG/24 HR TRANSDERMAL TD SCH (09:18)
[2023-03-23] MEDS: BENZTROPINE 0.5 MG TAB PO SCH ×2 (09:19→17:01)
[2023-03-23] MEDS: DIVALPROEX 500MG *ER* TAB PO SCH (09:19)
[2023-03-23] MEDS: RIVAROXABAN 10MG TAB (XARELTO) PO SCH (17:01)
[2023-03-23] MEDS: PALIPERIDONE 3MG ER TAB (INVEGA) PO SCH (17:01)
[2023-03-23 17:43] VITALS: BP 127/75; TEMP 97.7; O2SAT 93
[2023-03-24 06:48] VITALS: BP 128/62; TEMP 98.1; O2SAT 96
[2023-03-24] MEDS: DIVALPROEX 500MG *ER* TAB PO SCH (09:29)
[2023-03-24] MEDS: BENZTROPINE 0.5 MG TAB PO SCH ×2 (09:29→18:00)
[2023-03-24] MEDS: NICOTINE 14 MG/24 HR TRANSDERMAL TD SCH (09:31)
[2023-03-24] MEDS: PALIPERIDONE 3MG ER TAB (INVEGA) PO SCH (17:59)
[2023-03-24] MEDS: RIVAROXABAN 10MG TAB (XARELTO) PO SCH (17:59)
[2023-03-25] MEDS: DIVALPROEX 500MG *ER* TAB PO SCH (08:28)
[2023-03-25] MEDS: BENZTROPINE 0.5 MG TAB PO SCH (08:28)
[2023-03-25] MEDS: NICOTINE 14 MG/24 HR TRANSDERMAL TD SCH (08:29)
[2023-03-25] MEDS ORDERED: HYDR-3490 PO (09:10)
[2023-03-25] MEDS ORDERED: PALI1TAB4 PO (09:10)
[2023-03-25] MEDS ORDERED: BENZ0.5T2 PO (09:10)
[2023-03-25] MEDS ORDERED: XARE10TA PO (09:10)
[2023-03-25] MEDS ORDERED: DIVA500T9 PO (09:10)
[2023-03-25] MEDS ORDERED: NICO14PA TD (09:10)
[2023-03-25] MEDS ORDERED: INVE234I IM (09:10)
[2023-03-25] MEDS ORDERED: PALIPERIDONE PAL 234MG/1.5ML INJ (INVEGA)(FREE PSY INPT ONLY) IM ONE (11:30)
== END 2023-03-25 14:30 | disposition home or self-care (01) | DRG 885 ==
LOC: M ED 04:04 → EDBD 04:04 → M ED INP 10:14 → M PSY 16:20
PROVIDERS: ADMIT Student in an Organized Health Care Education/Training Program; ATTEND Student in an Organized Health Care Education/Training Program
DX: F25.0 Schizoaffective disorder, bipolar type (principal); F17.200 Nicotine dependence, unspecified, uncomplicated; F60.3 Borderline personality disorder; F84.9 Pervasive developmental disorder, unspecified; Z88.8 Allergy status to other drugs, medicaments and biological substances; Z79.899 Other long term (current) drug therapy; I10 Essential (primary) hypertension; Z86.718 Personal history of other venous thrombosis and embolism; E66.01 Morbid (severe) obesity due to excess calories

== ENCOUNTER 2023-03-30 11:58 | Emergency (ER) | payer MEDICARE, MEDICAID ==
[~2023-03-30] VITALS: Ht 165.1 cm; Wt 159.1 kg
[2023-03-30 11:59] VITALS: BP 135/83; TEMP 98.7; O2SAT 96
[2023-03-30] MEDS ORDERED: MED REC IN PROGRESS XX SCH (13:20)
[2023-03-30 13:30] LABS: HEMATOCRIT 40.5 % (36.0-47.0); HEMOGLOBIN 13.3 g/dl (12.0-15.5); MEAN CORPUSCULAR HEMOGLOBIN 29.6 pg (27.0-33.0); MEAN CORPUSCULAR HGB CONC 32.8 g/dl (32.0-36.5); MEAN CORPUSCULAR VOLUME 90.2 fl (80.0-96.0); PLATELET COUNT, AUTOMATED 192 10^3/uL (150-450); RED BLOOD COUNT 4.49 10^6/uL (4.00-5.40); WHITE BLOOD COUNT 6.1 10^3/uL (4.0-10.0)
[2023-03-30] MEDS ORDERED: HOME MED LIST COMPLETE! XX SCH (14:00)
[2023-03-30 14:11] LABS: VALPROIC ACID (DEPAKOTE) 3.3 UG/ML (50.0-100.0)
[2023-03-30 14:12] LABS: ETHYL ALCOHOL (ETHANOL) < 0.003 % (0.000-0.010); SALICYLATE LEVEL < 3.0 MG/DL (<30)
[2023-03-30 14:13] LABS: ALBUMIN 3.2 G/DL (3.2-5.2); ALKALINE PHOSPHATASE 67 U/L (46-116); ALT/SGPT 21 U/L (7.0-40); AST/SGOT 13 U/L (<34); BILIRUBIN,DIRECT < 0.1 MG/DL (<0.4); BILIRUBIN,TOTAL 0.2 MG/DL (0.3-1.2); BLOOD UREA NITROGEN 13 MG/DL (9-23); CALCIUM LEVEL 9.1 MG/DL (8.3-10.6); CARBON DIOXIDE LEVEL 27 MMOL/L (20-31); CHLORIDE LEVEL 104 MMOL/L (98-107); CREATININE FOR GFR 0.56 MG/DL (0.55-1.30); GLOMERULAR FILTRATION RATE > 60.0 (>45); GLUCOSE, FASTING 147 MG/DL (74-106); POTASSIUM SERUM 4.1 MMOL/L (3.5-5.1); SODIUM LEVEL 138 MMOL/L (136-145); TOTAL PROTEIN 6.3 G/DL (5.7-8.2)
[2023-03-30 14:15] LABS: THYROID STIMULATING HORMONE 1.339 uIU/ML (0.55-4.78)
== END 2023-03-30 15:35 | disposition left against medical advice (07) ==
LOC: M ED 11:58
DX: R45.851 Suicidal ideations (principal); F25.9 Schizoaffective disorder, unspecified; I10 Essential (primary) hypertension; Z86.711 Personal history of pulmonary embolism; F17.200 Nicotine dependence, unspecified, uncomplicated; Z88.8 Allergy status to other drugs, medicaments and biological substances; Z53.9 Procedure and treatment not carried out, unspecified reason

== ENCOUNTER 2023-03-31 08:24 | Emergency (ER) | payer MEDICARE, MEDICAID ==
[~2023-03-31] VITALS: Ht 166.4 cm; Wt 158.7 kg
[2023-03-31] MEDS ORDERED: NIRMATRELVIR/RITONAVIR CO-PACK (EMERGENCY USE AUTH) PO SCH ×2 (09:00→09:15)
[2023-03-31 10:49] VITALS: BP 166/74; TEMP 97; O2SAT 98
== END 2023-03-31 10:50 | disposition home or self-care (01) ==
LOC: M ED 08:24 → EDBD 08:24 → M ED 10:50
DX: U07.1 COVID-19 (principal); I10 Essential (primary) hypertension; E66.9 Obesity, unspecified; F25.9 Schizoaffective disorder, unspecified; F17.200 Nicotine dependence, unspecified, uncomplicated; Z86.718 Personal history of other venous thrombosis and embolism; Z88.8 Allergy status to other drugs, medicaments and biological substances

== ENCOUNTER 2023-04-01 06:05 | Emergency (ER) | payer MEDICARE, MEDICAID ==
[~2023-04-01] VITALS: Ht 166.4 cm; Wt 158.8 kg
[2023-04-01] MEDS ORDERED: MED REC IN PROGRESS XX SCH (08:45)
[2023-04-01] MEDS ORDERED: HOME MED LIST COMPLETE! XX SCH (10:55)
[2023-04-01 14:35] VITALS: BP 138/79; TEMP 98.3; O2SAT 94
== END 2023-04-01 15:35 | disposition home or self-care (01) ==
LOC: M ED 06:05
DX: F25.9 Schizoaffective disorder, unspecified (principal); I10 Essential (primary) hypertension; F17.200 Nicotine dependence, unspecified, uncomplicated; Z86.711 Personal history of pulmonary embolism; Z88.8 Allergy status to other drugs, medicaments and biological substances; Z59.00 Homelessness unspecified